=== PATIENT | female | born 1945 | race Caucasian/White ===

== ENCOUNTER 2017-06-15 00:31 | Inpatient (IN) | payer MEDICARE, OTHER ==
[2017-06-15 01:35] LABS: #Eosinphils 0.3 thou/uL (0.0-0.7); #Lymphocytes 1.9 thou/uL (1.20-3.40); #Monocytes 1.3 thou/uL (0.11-0.59); %Basophils 0.2 % (0.0-1.0); %Eosinophils 2.4 % (0.0-10.0); %Lymphocytes 16.2 % (21.0-51.0); %Monocytes 11.2 % (0.0-10.0); Mean Corpuscular HGB CONC 33.1 g/dL (32.0-36.0); Mean Corpuscular Hemoglobin 31.5 pg (27.0-31.0); Mean Corpuscular Volume 95.3 fl (81.0-99.0); Mean Platelet Volume 6.5 fL (7.4-10.4); Platelet Count 143 thou/uL (130-400); Red Blood Cell (RBC) Count 4.45 mill/uL (4.20-5.40); White Blood Cell (WBC) Count 11.4 thou/uL (4.8-10.8)
[2017-06-15 01:41] LABS: INR-International Normal Ratio 1.1; Prothrombin Time 14.1 SEC (12.0-14.7)
[2017-06-15 01:42] LABS: PTT 32.1 SEC (22.9-36.1)
[2017-06-15 01:56] LABS: ALT (SGPT) 11 U/L (8-55); AST (SGOT) 22 U/L (5-34); Albumin 3.7 g/dL (3.4-4.8); Alkaline Phosphatase 109 U/L (40-150); Anion Gap 14 mmol/L (10-20); BUN (Urea Nitrogen) 14 mg/dL (9.8-20.1); Bilirubin, Total 0.6 mg/dL (0.2-1.2); Calc. Creatinine Clearance 0 mL/min (70-130); Calcium 9.2 mg/dL (7.8-10.44); Carbon Dioxide 31 mmol/L (23-31); Chloride 93 mmol/L (98-107); Estimated GFR-MDRD 63; Globulin 3.2 g/dL (2.4-3.5); Glucose 114 mg/dL (80-115); Potassium 4.1 mmol/L (3.5-5.1); Protein, Total 6.9 g/dL (6.0-8.3); Sodium 134 mmol/L (136-145)
[2017-06-15] MEDS ORDERED: Sodium Chloride 0.9% 1,000 ML IV SCH ×2 (04:09→13:45)
[2017-06-15] MEDS ORDERED: Ondansetron ODT 4 MG TAB SL PRN (04:09)
[2017-06-15] MEDS ORDERED: Ondansetron HCl/PF 4 MG/2 ML Vial IVP PRN ×4 (04:09→14:10)
[2017-06-15] MEDS ORDERED: Acetaminophen 325 MG TAB PO PRN (04:09)
[2017-06-15 04:21] VITALS: BMI 40.4
[2017-06-15] MEDS ORDERED: Fleet Enema 133 ML BOT PR PRN ×2 (04:38→13:42)
[2017-06-15] MEDS ORDERED: Bisacodyl 10 MG SUPP PR PRN ×2 (04:38→13:42)
[2017-06-15] MEDS ORDERED: Morphine 4 MG/ML VIAL SLOW IVP PRN ×2 (04:38)
[2017-06-15] MEDS ORDERED: Ondansetron ODT 4 MG TAB PO PRN ×2 (04:38→13:42)
[2017-06-15] MEDS ORDERED: Milk Of Magnesia 30 ML UDCUP PO PRN ×2 (04:38→13:42)
[2017-06-15] MEDS: D5 0.9% NS w/ 20 mEq KCl 1,000 ML IV SCH ×2 (06:34→19:38)
[2017-06-15] MEDS: Ketorolac Tromethamine 30 MG/ML VIAL IVP SCH ×4 (06:35→23:08)
[2017-06-15] MEDS ORDERED: Tranexamic Acid 1,000 MG in Sodium Chloride 0.9% 250 ML 250 ML IVPB SCH (07:00)
[2017-06-15] MEDS ORDERED: CEFAZOLIN/Water 2 GM/20 ML SYRINGE SLOW IVP SCH (07:00)
--- NOTE | 2017-06-15 07:18 | HP ---
Artie Lemus PA-C, dictating for Massimo Tracy M.D. DATE OF ADMISSION: 06/15/2017 CONSULTING PHYSICIAN: Piotr Cordero M.D. CHIEF COMPLAINT: Evaluation status post fall. HISTORY OF PRESENT ILLNESS: A 71-year-old female who presents to the ED status post fall tonight. Hans capellan reported she was attempting to get into her recliner and she just somehow tripped and fell clem ding on her left hip and now complaining of left hip pain. She denies any other pain other than her chronic basis of back pain. Denied any lightheadedness, chest pain, headache, shortness of breath pr ior to the fall. PAST MEDICAL HISTORY: Includes liver cirrhosis, chronic back pain, history of low blood pressure. PAST SURGICAL HISTORY: Includes cholecystectomy, tubal ligation, and orthopedic surgeries of all hip and elbow. PSYCHIATRIC HISTORY: Includes depression. SOCIAL HISTORY: She denies any alcohol, drug, or tobacco use. She lives at home alone. She does [place] ve a history of alcoholism. ALLERGIES: SULFA. CURRENT MEDICATIONS: Aspirin 81 mg p.o. daily, bupropion 150 mg p.o. daily, carvedilol 3.125 mg p.o. b.i.d., ferrous sulfate 325 p.o. daily, folic acid p.o. daily 1 mg, furosemide 40 mg p.o. b.i.d., ga bapentin 300 mg t.i.d., loratadine 10 mg p.o. daily, pantoprazole DR 40 mg p.o. daily, risperidone 0. 5 mg p.o. b.i.d., spironolactone 100 mg p.o. daily, B12 1000 mcg p.o. daily. REVIEW OF SYSTEMS: All 10 systems were reviewed, otherwise stated in the HPI. PHYSICAL EXAMINATION: VITAL SIGNS: Blood pressure 132/74, heart rate 73, respiratory rate 20, temperature 97.9, 10/10 pain , 95% on O2. HEENT: Atraumatic, normocephalic. Eyes: Equal, round, react to light, 3 mm bilaterally. No JVD, n o masses. Trachea is midline. RESPIRATORY: Clear bilaterally to auscultation. CARDIOVASCULAR: S1, S2, regular rate and rhythm. ABDOMEN: Soft, nontender, nondistended, large left ventral hernia. BACK: Unremarkable. EXTREMITIES: Unremarkable. Lower extremities small amount of tenderness in the left lateral hip, un able to move or test range of motion secondary to pain. Normal sensation. Capillary refill. Positi ve pulses bilaterally. NEUROLOGIC: GCS of 15. LABORATORY DATA: WBC 11.4, hemoglobin 14, hematocrit 42.4, platelet count 143. Coags 14.1, INR 1.1, PTT 32.1. Sodium 134, potassium 4.1, chloride 93, bicarbonate 31, BUN 14, creatinine 0.9, glucose 1 14. RADIOLOGIC REPORTS: Pelvic x-ray showed impacted and displaced left IT fracture on pelvis and hip x- ray, chest showed no acute disease. ASSESSMENT AND PLAN: 1. Status post fall. 2. Left impacted and displaced intertrochanteric fracture. Plan will be to obtain orthopedic consultation. Dr. Cordero has been already contacted and follow up recommendations by him. Optimize her pain with IV analgesics, keep remain n.p.o., continue IV fluids , initiate gastritis and DVT prophylaxis when appropriate. Patient has been discussed with Dr. Tracy and agrees with the above plan.
[2017-06-15] MEDS ORDERED: Tranexamic Acid 1,000 MG/100 ML BAG ONE (11:31)
[2017-06-15] MEDS ORDERED: CEFAZOLIN/Water 2 GM/20 ML SYRINGE ONE (11:31)
--- NOTE | 2017-06-15 11:57 | RAD ---
RADIOGRAPH LEFT HIP 2 VIEWS: DATE: 06/15/17. TIME: 1:05 a.m. HISTORY: A 71-year-old female status post acute traumatic injury to the left hip. FINDINGS: There is a comminuted intertrochanteric fracture with subtrochanteric component. There is mildly inc reased varus angulation, and mild anterior displacement of the main distal fragment. Lesser trochant camila fracture fragments are displaced. There is severe joint space narrowing, with sclerosis and mod erate subcapital osteophytosis, at the inferior aspect of the hip. Femoral head is mildly irregular, and is associated with sclerosis and multiple small subchondral cysts throughout. There is also irre gularity of the left pubis, and especially of the left inferior ramus. IMPRESSION: 1. Acute, traumatic, comminuted, displaced, closed, left intertrochanteric fracture. 2. Fractures of the left inferior ramus and left pubis, of indeterminate age. 3. Severe osteoarthrosis of the left hip. 4. Osteopenia. POS: [facility]
--- NOTE | 2017-06-15 12:01 | RAD ---
RADIOGRAPH PELVIS 1 VIEW: DATE: 06/15/17. TIME: 1:00 a.m. HISTORY: A 71-year-old female with acute traumatic pelvic pain from fall. FINDINGS: Right hip replacement arthroplasty hardware. Severe DJD of left hip, especially inferiorly. Acute l eft intertrochanteric fracture with increased varus angulation, and displacement of lesser trochanter ic fracture fragment. Old, healed right inferior and right superior ramus fracture deformities, as n oted on previous right hip radiograph of 01/20/17. Similar-appearing displaced fracture deformities of left inferior ramus and left pubis. There are no prior studies of the left hip for comparison, and it is uncertain whether these are acute or chronic . There is diffuse osteopenia. Pelvic ring appears to be grossly intact, but mildly displaced pelvi c fractures could be missed because of the severe osteopenia. IMPRESSION: 1. Acute, traumatic, displaced, comminuted left intertrochanteric fracture. 2. Old healed fractures of right superior and inferior rami. 3. Displaced fractures of left inferior ramus and left pubis, of indeterminate age, presumably old. 4. Status post total right hip replacement arthroplasty. 5. Osteopenia. POS: [facility]
--- NOTE | 2017-06-15 12:02 | RAD ---
RADIOGRAPH CHEST 1 VIEW: HISTORY: A 71-year-old female for preoperative evaluation, status post acute left intertrochanteric fracture. FINDINGS: The image is overexposed. There is no evidence of consolidation. The lateral costophrenic angles ar e sharp. IMPRESSION: 1) Limited study. 2) No acute findings. patricio [] POS: [facility]
[2017-06-15] MEDS ORDERED: PHENYLEPHRINE-NS 100 MCG/ML 10 ML SYRINGE ONE (12:10)
[2017-06-15] MEDS ORDERED: Dexamethasone 20 MG/5 ML VIAL ONE (12:10)
[2017-06-15] MEDS ORDERED: Ondansetron HCl/PF 4 MG/2 ML Vial ONE (12:10)
[2017-06-15] MEDS ORDERED: Glycopyrrolate 0.2 MG/ML 5 ML SYRINGE ONE (12:10)
[2017-06-15] MEDS ORDERED: Fentanyl 100 MCG/2 ML VIAL ONE (12:17)
[2017-06-15] MEDS ORDERED: Bacitracin Zinc Ointment 30 gm TUBE ONE (13:12)
[2017-06-15] MEDS ORDERED: Fentanyl 100 MCG/2 ML VIAL SLOW IVP PRN (13:42)
[2017-06-15] MEDS ORDERED: traMADol HCl 50 MG TAB PO PRN ×2 (13:42)
[2017-06-15] MEDS ORDERED: Cepastat Lozenges 1 LOZ PO PRN (13:42)
[2017-06-15] MEDS ORDERED: Tranexamic Acid 1,000 MG in Sodium Chloride 0.9% 100 ML IVPB SCH (13:45)
[2017-06-15] MEDS ORDERED: CEFAZOLIN 1 GM in Sodium Chloride 0.9% 100 ML IVPB SCH (14:00)
[2017-06-15] MEDS ORDERED: Promethazine HCl 25 MG/ML VIAL IM PRN (14:10)
[2017-06-15] MEDS ORDERED: Promethazine HCl 25 MG/ML VIAL SLOW IVP PRN (14:10)
[2017-06-15] MEDS ORDERED: HYDROmorphone 2 MG/ML VIAL SLOW IVP PRN (14:10)
--- NOTE | 2017-06-15 14:14 | OP ---
DATE OF PROCEDURE: 06/15/2017 PREOPERATIVE DIAGNOSIS: Left hip three-part intertrochanteric reversed oblique hip fracture with sub trochanteric component. POSTOPERATIVE DIAGNOSIS: Left hip three-part intertrochanteric reversed oblique hip fracture with patel btrochanteric component. OPERATIVE PROCEDURE: Closed reduction with intramedullary nail fixation utilizing a Synthes short TF N. SURGEON: Piotr Cordero M.D. SCIENTIST ELECTRONICS: Farhan Bauer PA-C ANESTHESIA: General via endotracheal tube. COMPONENTS USED: Synthes short TFN 11 mm nail system with a 110 mm lag screw and a 5 mm, 38 mm lengt h interlocking screw. ESTIMATED BLOOD LOSS: 350 mL DRAINS: None. SPECIMENS: None. COMPLICATIONS: None. COUNTS: Correct. INDICATIONS FOR SURGERY: Josette is a 71-year-old white female that fell from a standing height yester day evening resulting in a hip fracture. She was admitted to Trauma Service. Now, we were consulted for definitive orthopedic management of this problem. PROCEDURE IN DETAIL: After informed consent was obtained in the preoperative holding area, the patie nt received preoperative antibiotics, was taken to the operative suite and positioned appropriately o n the fracture table, and after adequate anesthesia was obtained, the patient was positioned appropri ately. The left hip was then visualized using fluoroscopy. In line longitudinal traction and reduct ion maneuvers were performed until near anatomic reduction was obtained. The left hip and lower extr emity were then prepped and draped in usual sterile fashion. Prior to incision, a time out was manuel d and all members of the surgical team agreed upon site, surgeon, and patient. Once this was complet ed, a longitudinal incision was made 2 fingerbreadths above the tip of the trochanter noted by palpat ion. The IT band was then incised sharply. The tip of the trochanter was palpated and using the pos terior 1/3 of the trochanter, the guidepin was then placed down the length of the canal. This was co nfirmed in 2 planes with fluoroscopy. The 15 mm opening reamer was then used to open the tip of the trochanter and the nail was then slid down and malleted firmly into place. The outrigger was then us ed to place the lag screw guide pin. We chose posterior inferior screw placement and this was over r eamed with the lateral cortex reamer and intramedullary reaming was carried up to the appropriate luis gth. The pin was then used to guide the lag screw in place and we used minimal reduction in compress ion to accomplish this. Once completed, the guidepin was then removed and the outrigger was used to place the distal interlocking screw. We chose a 2-incision technique to perform this. The locking g ate was closed on the lag screw. The outrigger was removed and final fluoroscopic films were obtaine d in both AP, lateral, and a 20 degree trauma oblique. Happy with that anatomic reduction, both inci sions were copiously irrigated with normal saline and primary closure was accomplished with a 0 in th e IT band and 2-0 in subcutaneous layer and stainless steel rachel were used to reapproximate the sk in. Sterile dressings were applied to both incisions. Procedure was terminated without any complica tions. The patient was removed from the fracture table, taken to the recovery room in stable conditi on.
--- NOTE | 2017-06-15 15:59 | RAD ---
LEFT HIP 2 VIEWS: HISTORY: Left hip fracture. FINDINGS: Two spot fluoroscopic intraoperative images of the left hip demonstrate interval reduction and architecture internship al fixation of the intertrochanteric fracture seen on earlier exam of 1:03 a.m. from the same date. POS: [facility]
[2017-06-15] MEDS ORDERED: Eucerin (Mineral Oil/Petrolatum,White) 30 gm Jar TOP PRN (19:50)
[2017-06-15] MEDS: CEFAZOLIN 1 GM, Syringe 2.5 ML in Sterile Water 7.5 ML SLOW IVP SCH (20:24)
[2017-06-15] MEDS: Aspirin 325 MG TAB PO SCH (20:25)
[2017-06-15] MEDS: Gabapentin 300 MG CAP PO SCH (20:25)
[2017-06-15] MEDS: Ferrous Gluconate 324 MG TAB PO SCH (20:25)
[2017-06-15] MEDS: risperiDONE 0.25 MG TAB PO SCH (20:26)
[2017-06-15] MEDS: Carvedilol 3.125 MG TAB PO SCH (20:26)
[2017-06-15] MEDS: Furosemide 40 MG TAB PO SCH (20:26)
[2017-06-15] MEDS: Senokot S 8.6-50 MG TAB PO SCH (20:27)
[2017-06-15] MEDS: Spironolactone 100 MG TAB PO SCH (20:27)
[2017-06-15] MEDS ORDERED: Gabapentin 300 MG CAP PO SCH (21:00)
[2017-06-15] MEDS ORDERED: Non-Formulary Item 1 EACH (Risperidone [Risperdal] 0.5 MG) PO SCH (21:00)
--- NOTE | 2017-06-15 23:02 | PRG ---
DATE OF SERVICE: 06/15/2017 SUBJECTIVE: No acute changes at this time. Pain is controlled at this time with current medication regime. OBJECTIVE: VITAL SIGNS: Heart rate 96, respiratory rate 18, blood pressure 125/72. PHYSICAL EXAMINATION: GENERAL: No acute distress. LUNGS: Clear lung sounds bilaterally. CARDIOVASCULAR: S1, S2, regular rate and rhythm. ABDOMEN: Soft, nontender, nondistended. EXTREMITIES: Noted left hip . Positive pulses in all 4 extremities. NEUROLOGIC: GCS 15. ASSESSMENT AND PLAN: This is a nice 71-year-old female, postop day 0 from a closed reduction with in tramedullary nail fixation utilizing a nail. We will optimize her pain. We will start PT and OT the rapy sessions, most likely have a rehab screen in this patient for post-hospital care. We will resta rt her home meds. The patient was placed on deep venous thrombosis prophylaxis when appropriate. At this time, patient was discussed with Dr. Tracy, who agrees with the above plan.
[2017-06-16] MEDS: CEFAZOLIN 1 GM, Syringe 2.5 ML in Sterile Water 7.5 ML SLOW IVP SCH (04:33)
[2017-06-16] MEDS: Ketorolac Tromethamine 30 MG/ML VIAL IVP SCH (05:19)
[2017-06-16 05:31] LABS: Hemoglobin 10.6 g/dL (12.0-16.0); Mean Corpuscular HGB CONC 33.2 g/dL (32.0-36.0); Mean Corpuscular Hemoglobin 31.7 pg (27.0-31.0); Mean Corpuscular Volume 95.5 fl (81.0-99.0); Mean Platelet Volume 6.8 fL (7.4-10.4); Platelet Count 104 thou/uL (130-400); RBC Distribution Width 12.8 % (11.5-14.5); Red Blood Cell (RBC) Count 3.36 mill/uL (4.20-5.40)
[2017-06-16 05:38] LABS: Anion Gap 12 mmol/L (10-20); BUN (Urea Nitrogen) 19 mg/dL (9.8-20.1); Calc. Creatinine Clearance 94 mL/min (70-130); Calcium 8.4 mg/dL (7.8-10.44); Carbon Dioxide 31 mmol/L (23-31); Chloride 96 mmol/L (98-107); Estimated GFR-MDRD 61; Glucose 157 mg/dL (80-115); Potassium 4.1 mmol/L (3.5-5.1); Sodium 135 mmol/L (136-145)
[2017-06-16] MEDS ORDERED: Ferrous Sulfate 325 MG TAB PO SCH (08:00)
[2017-06-16] MEDS ORDERED: traMADol HCl 50 MG TAB PO PRN ×2 (08:48)
[2017-06-16] MEDS ORDERED: Bupropion 150 MG XL TAB PO SCH (09:00)
[2017-06-16] MEDS: Aspirin 325 MG TAB PO SCH ×2 (10:12→21:25)
[2017-06-16] MEDS: Ferrous Gluconate 324 MG TAB PO SCH ×2 (10:12→21:26)
[2017-06-16] MEDS: Gabapentin 300 MG CAP PO SCH ×3 (10:12→21:26)
[2017-06-16] MEDS: Cyanocobalamin (Vitamin B-12) 1,000 MCG TAB PO SCH (10:13)
[2017-06-16] MEDS: Senokot S 8.6-50 MG TAB PO SCH ×2 (10:13→21:25)
[2017-06-16] MEDS: Loratadine 10 MG TAB PO SCH (10:13)
[2017-06-16] MEDS: Furosemide 40 MG TAB PO SCH ×2 (10:13→21:26)
[2017-06-16] MEDS: Folic Acid 1 MG TAB PO SCH (10:13)
[2017-06-16] MEDS: risperiDONE 0.25 MG TAB PO SCH ×2 (10:14→10:19)
[2017-06-16] MEDS: Multivitamin W/ Minerals 1 TAB PO SCH (10:14)
[2017-06-16] MEDS: Carvedilol 3.125 MG TAB PO SCH ×3 (10:14→18:36)
[2017-06-16] MEDS: Bupropion 150 MG SR TAB PO SCH (11:09)
[2017-06-16] MEDS: traMADol HCl 50 MG TAB PO SCH ×3 (11:21→22:32)
[2017-06-16] MEDS: Acetaminophen 500 MG TAB PO SCH ×3 (11:21→22:31)
[2017-06-16] MEDS: Spironolactone 100 MG TAB PO SCH ×2 (11:26→21:27)
[2017-06-16] MEDS: predniSONE 1 MG TAB PO SCH (11:26)
[2017-06-16] MEDS: Ibuprofen 600 MG TAB PO SCH ×2 (11:26→18:36)
--- NOTE | 2017-06-16 14:05 | PRG ---
DATE OF SERVICE: 06/16/2017 SUBJECTIVE: The patient is hospital day #2, postop day #1 status post ground-level fall in which she sustained a left hip fracture. The patient has undergone a closed reduction with intramedullary brooke l fixation by Orthopedic Service. The patient tolerated this procedure well. This morning, her pain is controlled and she is tolerating a diet. She will begin working with physical and occupational t herapy today. The patient will also undergo rehabilitation evaluation. PHYSICAL EXAMINATION: VITAL SIGNS: Temperature 97.5, heart rate 76, blood pressure 126/79, respirations 14, oxygen saturat ion 94% on room air. GENERAL: Patient is resting comfortably in bed. She is alert and oriented x3. Hutchinson coma scale i s 15. HEENT: Unremarkable. NECK: Nontender. Trachea is midline. No JVD. CHEST: Clear to auscultation bilaterally. HEART: Regular rate and rhythm. ABDOMEN: Soft, flat, nontender with active bowel sounds. EXTREMITIES: Neurovascularly intact x4. Postoperative dressing is clean, dry, and intact. LABORATORY FINDINGS AND IMAGING DATA: White blood cell count 11.0, hemoglobin 10.6, hematocrit 32.1, platelets 104. Sodium 135, potassium 4.1, chloride 96, CO2 31, BUN 19, creatinine 0.91, glucose 157 . There are no radiographs to review this morning. ASSESSMENT: 1. Status post ground-level fall. 2. Status post left hip fracture for which she has undergone surgical intervention. PLAN: Will be to continue physical and occupational therapy, pain control, and await placement decis ion. This evaluation was done with Dr. Price during rounds this morning.
[2017-06-16] MEDS: traMADol HCl 50 MG TAB PO PRN (15:46)
[2017-06-16] MEDS ORDERED: risperiDONE 0.25 MG TAB PO SCH (21:30)
--- NOTE | 2017-06-16 23:40 | PRG ---
DATE OF SERVICE: 06/16/2017 SUBJECTIVE: Josette Martin is a 71-year-old female postop day #1 status post hip fracture repair. The patient had no complaints this evening. She would like to discuss [facility] versus rehab with day shifting. OBJECTIVE: VITAL SIGNS: Stable. GENERAL: The patient is afebrile. Resting in bed in no acute distress. RESPIRATORY: Breathing is nonlabored. NEUROLOGIC: Moves all extremities x4. ASSESSMENT AND PLAN: As documented in daily progress note dated 06/16/2017. Continue care as kerry [place] We will continue to monitor.
[2017-06-17] MEDS: Ibuprofen 600 MG TAB PO SCH ×2 (00:45→09:08)
[2017-06-17] MEDS: traMADol HCl 50 MG TAB PO SCH ×2 (04:50→12:57)
[2017-06-17] MEDS: Acetaminophen 500 MG TAB PO SCH ×2 (04:50→09:08)
[2017-06-17 06:09] LABS: Hemoglobin 10.2 g/dL (12.0-16.0); Mean Corpuscular HGB CONC 33.7 g/dL (32.0-36.0); Mean Corpuscular Hemoglobin 32.2 pg (27.0-31.0); Mean Corpuscular Volume 95.5 fl (81.0-99.0); Mean Platelet Volume 7.1 fL (7.4-10.4); Platelet Count 111 thou/uL (130-400); Red Blood Cell (RBC) Count 3.16 mill/uL (4.20-5.40); White Blood Cell (WBC) Count 10.2 thou/uL (4.8-10.8)
[2017-06-17 06:15] LABS: Anion Gap 13 mmol/L (10-20); BUN (Urea Nitrogen) 36 mg/dL (9.8-20.1); Calc. Creatinine Clearance 85 mL/min (70-130); Calcium 8.9 mg/dL (7.8-10.44); Carbon Dioxide 31 mmol/L (23-31); Chloride 94 mmol/L (98-107); Estimated GFR-MDRD 54; Glucose 106 mg/dL (80-115); Potassium 4.3 mmol/L (3.5-5.1); Sodium 134 mmol/L (136-145)
[2017-06-17] MEDS: Gabapentin 300 MG CAP PO SCH (09:07)
[2017-06-17] MEDS: traMADol HCl 50 MG TAB PO PRN (09:08)
[2017-06-17] MEDS: Spironolactone 100 MG TAB PO SCH (09:30)
[2017-06-17] MEDS: predniSONE 1 MG TAB PO SCH (09:30)
[2017-06-17] MEDS: Bupropion 150 MG SR TAB PO SCH (10:21)
[2017-06-17] MEDS: Carvedilol 3.125 MG TAB PO SCH (10:22)
[2017-06-17] MEDS: Ferrous Gluconate 324 MG TAB PO SCH (10:22)
[2017-06-17] MEDS: risperiDONE 0.25 MG TAB PO SCH (10:22)
[2017-06-17] MEDS: Aspirin 325 MG TAB PO SCH (10:22)
[2017-06-17] MEDS: Multivitamin W/ Minerals 1 TAB PO SCH (10:22)
[2017-06-17] MEDS: Senokot S 8.6-50 MG TAB PO SCH (10:22)
[2017-06-17] MEDS: Folic Acid 1 MG TAB PO SCH (10:23)
[2017-06-17] MEDS: Loratadine 10 MG TAB PO SCH (10:23)
[2017-06-17] MEDS: Furosemide 40 MG TAB PO SCH (10:23)
[2017-06-17] MEDS: Cyanocobalamin (Vitamin B-12) 1,000 MCG TAB PO SCH (10:23)
[2017-06-17 13:10] VITALS: BP 101/68; TEMP 97.8
[2017-06-17] MEDS ORDERED: Ascorbic Acid 500 mg Chewable Tablet PO SCH (17:00)
--- NOTE | 2017-06-18 12:46 | DIS ---
DATE OF ADMISSION: 06/15/2017 DATE OF DISCHARGE: 06/17/2017 ADMISSION DIAGNOSES: 1. Status post fall. 2. Left impacted and displaced intertrochanteric fracture. CONSULTATIONS: Orthopedics. PROCEDURES: Closed reduction with intramedullary nail fixation utilizing a short Synthes TFN. HOSPITAL SUMMARY: Patient is a 71-year-old woman who was attempting to sit on a recliner when she so mehow tripped and fell, landed on her left hip. She was brought to the emergency department, evalu ed, examined and noted to have the above injuries. The patient was stable enough to go to the operat ing room that evening and was able to tolerate this procedure well. At time of discharge, she was wo rking with physical and occupational therapy. She was tolerating a diet and pain was controlled. patient was discharged to [facility] per her and family request. The patient will follow up with Dr. Cordero in 2-3 weeks or sooner as needed.
--- NOTE | 2017-06-20 16:10 | EKG ---
Test Reason : Blood Pressure : / mmHG Vent. Rate : 075 BPM Atrial Rate : 075 BPM P-R Int : 176 ms QRS Dur : 080 ms QT Int : 424 ms P-R-T Axes : 028 -05 060 degrees QTc Int : 473 ms Normal sinus rhythm Nonspecific T wave abnormality Prolonged QT Abnormal ECG Confirmed by PATRICIA OATES D.O. ([id number]), scientific editor MEENA VEGA ([id number] on 06/20/2017 4:10:37 PM Referred By: MD OATES Confirmed By:PATRICIA OATES D.O.
== END 2017-06-17 14:17 | DRG 482 ==
LOC: ERS 00:31 → SJJU 03:40
PROVIDERS: ADMIT Surgery; ATTEND Surgery
PROC: 0QS736Z Reposition Left Upper Femur with Intramedullary Internal Fixation Device, Percutaneous Approach (ICD-10-PCS; principal; 2017-06-15)
DX: S72.142A Displaced intertrochanteric fracture of left femur, initial encounter for closed fracture (principal); K74.60 Unspecified cirrhosis of liver; F10.20 Alcohol dependence, uncomplicated; F32.9 Major depressive disorder, single episode, unspecified; S72.22XA Displaced subtrochanteric fracture of left femur, initial encounter for closed fracture; W01.0XXA Fall on same level from slipping, tripping and stumbling without subsequent striking against object, initial encounter
CPT/HCPCS: 36415; 51702; 71045; 72170; 76001; 80048; 80053; 83605; 85025; 85027; 85610; 85730; 93005; 96361; 96374; 96376; A4216; C1713; C1769; G0390; G8978-GP-CM; G8979-GP-CK; G8987-GO-CM; G8988-GO-CJ; J0690; J1100; J1885; J2405; J3010; J7050

== ENCOUNTER 2017-08-17 08:30 | Outpatient (CLI) | payer MEDICARE | END 2017-08-17 08:31 | disposition home or self-care (01) | LOC: ULT 08:30 | PROVIDERS: ATTEND Family Medicine | DX: K70.31 Alcoholic cirrhosis of liver with ascites (principal); Z90.49 Acquired absence of other specified parts of digestive tract | CPT/HCPCS: 76700 ==

== ENCOUNTER 2022-10-11 14:04 | Emergency (ER) | payer MEDICARE ==
[2022-10-11] MEDS ORDERED: Dexamethasone 4 mg/ml Vial ONE (15:46)
== END 2022-10-11 16:17 | disposition home or self-care (01) ==
LOC: ERS 14:04
DX: M19.042 Primary osteoarthritis, left hand (principal); T78.40XA Allergy, unspecified, initial encounter; Z79.82 Long term (current) use of aspirin
CPT/HCPCS: J1100

== ENCOUNTER 2022-11-18 15:10 | Inpatient (IN) | payer MEDICARE ==
[~2022-11-18 15:10] MED LIST: Iopamidol-370 76% 500 ML MDV (1 ML CHARGE) ONE
[2022-11-18 16:32] LABS: #Eosinphils 0.1 thou/uL (0.0-0.7); #Monocytes 1.2 thou/uL (0.11-0.59); %Basophils 0.2 % (0.0-1.0); %Eosinophils 0.8 % (0.0-10.0); %Lymphocytes 14.8 % (21.0-51.0); %Monocytes 10.8 % (0.0-10.0); %Neutrophils 72.3 % (42.0-75.0); Hemoglobin 11.5 g/dL (12.0-16.0); Mean Corpuscular HGB CONC 31.5 g/dL (32.0-36.0); Mean Corpuscular Hemoglobin 26.9 pg (27.0-31.0); Mean Corpuscular Volume 85.5 fl (78.0-98.0); Mean Platelet Volume 8.8 fL (7.4-10.4); Platelet Count 162 10x3/uL (130-400); RBC Distribution Width 17.7 % (11.5-14.5); Red Blood Cell (RBC) Count 4.27 mill/uL (4.20-5.40); White Blood Cell (WBC) Count 11.1 10x3/uL (4.8-10.8)
[2022-11-18 16:46] LABS: INR-International Normal Ratio 1.3; PTT 34.7 sec (22.9-36.1); Prothrombin Time 16.3 sec (12.0-14.7)
[2022-11-18 16:55] LABS: ALT (SGPT) 10 U/L (8-55); AST (SGOT) 20 U/L (5-34); Alkaline Phosphatase 54 U/L (40-110); Anion Gap 16 mmol/L (10-20); BUN (Urea Nitrogen) 11 mg/dL (9.8-20.1); Bilirubin, Total 0.7 mg/dL (0.2-1.2); CK (CPK) 88 U/L (29-168); Calc. Creatinine Clearance 0 mL/min (70-130); Calcium 8.7 mg/dL (7.8-10.44); Carbon Dioxide 27 mmol/L (23-31); Chloride 96 mmol/L (98-107); Estimated GFR 84; Globulin 3.7 g/dL (2.4-3.5); Glucose 104 mg/dL (83-110); Lipase 8 U/L (8-78); Potassium 2.8 mmol/L (3.5-5.1); Protein, Total 6.7 g/dL (5.8-8.1); Sodium 136 mmol/L (136-145)
[2022-11-18 17:46] LABS: Bacteria/HPF 4+ HPF (None Seen); Bilirubin Negative (Negative); Blood, Urine Negative (Negative); CAUTI Indications for Culture Alt mental st,lethar; Clarity Turbid (Clear); Glucose, Urine (Dipstick) Normal (Negative); Ketone, Urine Trace mg/dL (Negative); Leukocyte 500 Leu/uL (Negative); Nitrite Negative (Negative); Protein, Urine (Dipstick) 20 mg/dL (Neg-Trace); RBC/HPF 0-3 HPF (0-3); Specific Gravity, Urine 1.023 (1.002-1.036); Squamous Epithelial 0-3 HPF (0-3); WBC/HPF 21-50 HPF (0-3); pH, Urine 5.5 (5.0-9.0)
[2022-11-18 17:48] LABS: Urine Culture Reflex Yes Yes
[2022-11-18] MEDS ORDERED: Aspirin 325 MG TAB ONE (18:34)
[2022-11-18] MEDS ORDERED: cefTRIAXone (ROCEPHIN) 2 GM VIAL ONE (18:34)
[2022-11-18] MEDS ORDERED: Potassium Chloride 20 MEQ/100 ML PREMIX BAG ONE (18:58)
[2022-11-18] MEDS ORDERED: Piperacillin/Tazobactam 3.375 GM VIAL ONE (19:24)
[2022-11-18] MEDS ORDERED: Digoxin 0.5 MG/2 ML AMP ONE (19:44)
[2022-11-18] MEDS ORDERED: Senokot S 8.6-50 MG TAB PO PRN (20:41)
[2022-11-18] MEDS ORDERED: Acetaminophen 325 MG TAB PO PRN (20:41)
[2022-11-18] MEDS ORDERED: Ondansetron ODT 4 MG TAB PO PRN (20:41)
[2022-11-18 20:51] LABS: SARS-CoV-2 NAA Rapid Test Not Detected (NotDetected)
[2022-11-18] MEDS ORDERED: Thiamine 100 MG TAB PO SCH (21:00)
[2022-11-18] MEDS ORDERED: Famotidine 20 MG TAB PO SCH (21:00)
[2022-11-18] MEDS ORDERED: Albumin 25% 100 ML ONE (21:35)
[2022-11-18] MEDS ORDERED: Electrolyte Replacement Protocol 1 EACH FS SCH (21:40)
[2022-11-18] MEDS ORDERED: Albumin 25% 25 GM/100 ML BOT IVPB SCH (21:45)
[2022-11-18] MEDS ORDERED: Sodium Chloride 0.9% 500 ML IV SCH (21:45)
[2022-11-18 21:49] LABS: Alcohol Less than 10.0 mg/dL (Less than 10); Magnesium 1.6 mg/dL (1.6-2.6)
[2022-11-18] MEDS ORDERED: Dextrose 5% in Water 1,000 ML IV PRN (21:57)
[2022-11-18] MEDS ORDERED: Dextrose 50% Abboject 50 ML SYRINGE SLOW IVP PRN (21:57)
[2022-11-18] MEDS ORDERED: Glucagon 1 MG/ML KIT IM PRN (21:57)
[2022-11-18] MEDS ORDERED: Lactated Ringer's 1,000 ML IV SCH (22:00)
[2022-11-18 22:23] LABS: Amphetamine Not Detected (NotDetected); Barbiturates Screen Not Detected (NotDetected); Benzodiazepine Screen Not Detected (NotDetected); Cocaine Metabolite Screen Not Detected (NotDetected); Methadone Not Detected (NotDetected); Methamphetamine Not Detected (NotDetected); Opiate Screen Detected (NotDetected); Oxycodone Screen Not Detected (NotDetected); Phencyclidine (PCP) Not Detected (NotDetected); THC/Cannabinoid Screen Not Detected (NotDetected); Tricyclic Screen Not Detected (NotDetected)
[2022-11-18] MEDS: Potassium Chloride 20 MEQ in Premix Bag 1 BAG IVPB SCH (22:23)
[2022-11-18] MEDS: Thiamine HCl 200 MG/2 ML VIAL SLOW IVP SCH (22:26)
[2022-11-18] MEDS ORDERED: Piperacillin/Tazobactam 3.375 GM in Sodium Chloride 0.9% 100 ML IVPB SCH (22:45)
[2022-11-18] MEDS ORDERED: Lactated Ringer's 500 ML IV SCH (23:30)
[2022-11-19] MEDS: Potassium Chloride 20 MEQ in Premix Bag 1 BAG IVPB SCH (00:49)
[2022-11-19] MEDS ORDERED: Magnesium 2 GM/50 ML(in water) 2 GM in Premix Bag 1 BAG IVPB SCH (01:00)
[2022-11-19 04:00] LABS: #Eosinphils 0.2 thou/uL (0.0-0.7); #Monocytes 0.7 thou/uL (0.11-0.59); #Neutrophils 4.2 thou/uL (1.40-6.50); %Basophils 0.3 % (0.0-1.0); %Eosinophils 2.3 % (0.0-10.0); %Lymphocytes 27.2 % (21.0-51.0); %Monocytes 10.3 % (0.0-10.0); %Neutrophils 59.2 % (42.0-75.0); Hemoglobin 9.5 g/dL (12.0-16.0); Mean Corpuscular HGB CONC 31.4 g/dL (32.0-36.0); Mean Corpuscular Hemoglobin 26.6 pg (27.0-31.0); Mean Corpuscular Volume 84.9 fl (78.0-98.0); Mean Platelet Volume 8.9 fL (7.4-10.4); Platelet Count 126 10x3/uL (130-400); RBC Distribution Width 17.6 % (11.5-14.5); Red Blood Cell (RBC) Count 3.57 mill/uL (4.20-5.40)
[2022-11-19 04:18] LABS: Anion Gap 16 mmol/L (10-20); BUN (Urea Nitrogen) 9 mg/dL (9.8-20.1); Calc. Creatinine Clearance 101 mL/min (70-130); Calcium 8.1 mg/dL (7.8-10.44); Carbon Dioxide 25 mmol/L (23-31); Chloride 103 mmol/L (98-107); Estimated GFR 94; Glucose 96 mg/dL (83-110); Magnesium 2.3 mg/dL (1.6-2.6); Potassium 3.9 mmol/L (3.5-5.1); Sodium 140 mmol/L (136-145)
[2022-11-19 04:35] LABS: Phosphorus 3.8 mg/dL (2.3-4.7)
[2022-11-19] MEDS: Piperacillin/Tazobactam 3.375 GM in Sodium Chloride 0.9% 100 ML IVPB SCH ×3 (06:14→20:06)
[2022-11-19] MEDS ORDERED: Spironolactone 25 MG TAB PO SCH (08:00)
[2022-11-19] MEDS ORDERED: Lactated Ringer's 1,000 ML IV SCH (08:30)
[2022-11-19] MEDS ORDERED: Thiamine 100 MG TAB PO SCH (09:00)
[2022-11-19] MEDS ORDERED: Furosemide 20 MG TAB PO SCH (09:00)
[2022-11-19] MEDS: Famotidine/PF 20 mg/2ml Vial SLOW IVP SCH ×2 (10:21→20:07)
[2022-11-19] MEDS: Montelukast Sodium 10 mg Tablet PO SCH (14:43)
[2022-11-19] MEDS: Folic Acid 1 MG TAB PO SCH (14:43)
[2022-11-19] MEDS: Aspirin 81 mg Enteric Coated Tablet PO SCH (14:43)
[2022-11-19] MEDS: Multivit, Therapeutic 1 TAB PO SCH (14:44)
[2022-11-19] MEDS: Sertraline 100 MG TAB PO SCH (14:44)
[2022-11-19] MEDS: Rosuvastatin 5 MG TAB PO SCH (14:44)
[2022-11-19] MEDS ORDERED: cefTRIAXone\\ROCEPHIN 1 GM in Sodium Chloride 0.9% 100 ML IVPB SCH (17:00)
[2022-11-19] MEDS ORDERED: Digoxin 0.5 MG/2 ML AMP SLOW IVP SCH (19:15)
[2022-11-19] MEDS ORDERED: Metoprolol Tartrate 5 MG/5 ML VIAL IVP PRN (19:43)
[2022-11-19] MEDS: Sodium Chloride 0.9% 1,000 ML IV SCH (20:03)
[2022-11-19] MEDS: Benztropine 1 MG TAB PO SCH (20:06)
[2022-11-19] MEDS: Gabapentin 300 MG CAP PO SCH (20:07)
[2022-11-19] MEDS: Vit A,C & E/Lutein/Minerals Tablet PO SCH (20:07)
[2022-11-20 03:42] LABS: #Eosinphils 0.2 thou/uL (0.0-0.7); #Monocytes 0.8 thou/uL (0.11-0.59); #Neutrophils 5.5 thou/uL (1.40-6.50); %Basophils 0.2 % (0.0-1.0); %Eosinophils 2.6 % (0.0-10.0); %Lymphocytes 20.7 % (21.0-51.0); %Monocytes 9.8 % (0.0-10.0); %Neutrophils 65.9 % (42.0-75.0); Hemoglobin 11.2 g/dL (12.0-16.0); Mean Corpuscular HGB CONC 30.9 g/dL (32.0-36.0); Mean Corpuscular Hemoglobin 26.3 pg (27.0-31.0); Platelet Count 156 10x3/uL (130-400); RBC Distribution Width 17.7 % (11.5-14.5); Red Blood Cell (RBC) Count 4.26 mill/uL (4.20-5.40); White Blood Cell (WBC) Count 8.4 10x3/uL (4.8-10.8)
[2022-11-20 04:01] LABS: Anion Gap 17 mmol/L (10-20); BUN (Urea Nitrogen) 8 mg/dL (9.8-20.1); Calc. Creatinine Clearance 94 mL/min (70-130); Calcium 8.8 mg/dL (7.8-10.44); Carbon Dioxide 26 mmol/L (23-31); Chloride 100 mmol/L (98-107); Estimated GFR 92; Glucose 82 mg/dL (83-110); Potassium 3.6 mmol/L (3.5-5.1); Sodium 139 mmol/L (136-145)
[2022-11-20] MEDS: Thiamine HCl 200 MG/2 ML VIAL SLOW IVP SCH ×2 (04:19→21:43)
[2022-11-20] MEDS: Piperacillin/Tazobactam 3.375 GM in Sodium Chloride 0.9% 100 ML IVPB SCH ×3 (04:19→21:37)
[2022-11-20] MEDS: HYDROcodone/Acetaminophen 5/325 mg Tablet PO PRN (06:44)
[2022-11-20] MEDS ORDERED: Flecainide 50 MG TAB PO SCH (07:00)
[2022-11-20] MEDS: Benztropine 1 MG TAB PO SCH ×2 (08:46→21:36)
[2022-11-20] MEDS: Famotidine/PF 20 mg/2ml Vial SLOW IVP SCH (08:47)
[2022-11-20] MEDS: Bupropion 150 MG XL TAB PO SCH (08:47)
[2022-11-20] MEDS: Vit A,C & E/Lutein/Minerals Tablet PO SCH ×2 (08:47→21:37)
[2022-11-20] MEDS: Sertraline 100 MG TAB PO SCH (08:47)
[2022-11-20] MEDS: Gabapentin 300 MG CAP PO SCH ×3 (08:47→21:36)
[2022-11-20] MEDS: Sodium Chloride 0.9% 1,000 ML IV SCH ×2 (08:47→21:43)
[2022-11-20] MEDS: Rosuvastatin 5 MG TAB PO SCH (08:47)
[2022-11-20] MEDS: Montelukast Sodium 10 mg Tablet PO SCH (08:47)
[2022-11-20] MEDS: Folic Acid 1 MG TAB PO SCH (08:47)
[2022-11-20] MEDS: Multivit, Therapeutic 1 TAB PO SCH (08:47)
[2022-11-20] MEDS: Aspirin 81 mg Enteric Coated Tablet PO SCH (08:47)
[2022-11-21 03:41] LABS: #Eosinphils 0.3 thou/uL (0.0-0.7); #Monocytes 0.7 thou/uL (0.11-0.59); #Neutrophils 4.4 thou/uL (1.40-6.50); %Basophils 0.3 % (0.0-1.0); %Eosinophils 4.4 % (0.0-10.0); %Lymphocytes 24.5 % (21.0-51.0); %Monocytes 9.5 % (0.0-10.0); %Neutrophils 60.3 % (42.0-75.0); Hemoglobin 10.2 g/dL (12.0-16.0); Mean Corpuscular HGB CONC 30.8 g/dL (32.0-36.0); Mean Corpuscular Hemoglobin 26.3 pg (27.0-31.0); Mean Corpuscular Volume 85.3 fl (78.0-98.0); Mean Platelet Volume 8.6 fL (7.4-10.4); Platelet Count 127 10x3/uL (130-400); RBC Distribution Width 17.4 % (11.5-14.5); Red Blood Cell (RBC) Count 3.88 mill/uL (4.20-5.40); White Blood Cell (WBC) Count 7.2 10x3/uL (4.8-10.8)
[2022-11-21 04:05] LABS: Anion Gap 14 mmol/L (10-20); BUN (Urea Nitrogen) 6 mg/dL (9.8-20.1); Calc. Creatinine Clearance 92 mL/min (70-130); Calcium 8.2 mg/dL (7.8-10.44); Carbon Dioxide 26 mmol/L (23-31); Chloride 104 mmol/L (98-107); Estimated GFR 92; Glucose 97 mg/dL (83-110); Potassium 3.5 mmol/L (3.5-5.1); Sodium 140 mmol/L (136-145)
[2022-11-21] MEDS: Piperacillin/Tazobactam 3.375 GM in Sodium Chloride 0.9% 100 ML IVPB SCH (04:21)
[2022-11-21] MEDS ORDERED: Potassium Chloride 20 MEQ TAB PO SCH ×2 (08:30→09:00)
[2022-11-21] MEDS ORDERED: Flecainide Acetate 100 MG TAB PO SCH (09:00)
[2022-11-21] MEDS: Sertraline 100 MG TAB PO SCH (09:53)
[2022-11-21] MEDS: Aspirin 81 mg Enteric Coated Tablet PO SCH (09:53)
[2022-11-21] MEDS: Bupropion 150 MG XL TAB PO SCH (09:53)
[2022-11-21] MEDS: Benztropine 1 MG TAB PO SCH ×2 (09:53→22:20)
[2022-11-21] MEDS: Vit A,C & E/Lutein/Minerals Tablet PO SCH ×2 (09:53→22:20)
[2022-11-21] MEDS: Gabapentin 300 MG CAP PO SCH ×3 (09:54→22:20)
[2022-11-21] MEDS: Folic Acid 1 MG TAB PO SCH (09:56)
[2022-11-21] MEDS: Montelukast Sodium 10 mg Tablet PO SCH (09:57)
[2022-11-21] MEDS: Multivit, Therapeutic 1 TAB PO SCH (09:57)
[2022-11-21] MEDS: Rosuvastatin 5 MG TAB PO SCH (09:57)
[2022-11-21] MEDS: HYDROcodone/Acetaminophen 5/325 mg Tablet PO PRN (11:14)
[2022-11-21] MEDS: cefTRIAXone\\ROCEPHIN 1 GM in Sodium Chloride 0.9% 100 ML IVPB SCH (12:30)
[2022-11-21] MEDS: Sodium Chloride 0.9% 1,000 ML IV SCH (12:30)
[2022-11-21] MEDS ORDERED: Rifaximin 550 MG TAB PO SCH (16:00)
[2022-11-21] MEDS: Flecainide 50 MG TAB PO SCH (22:20)
[2022-11-22] MEDS: Sodium Chloride 0.9% 1,000 ML IV SCH (04:57)
[2022-11-22] MEDS ORDERED: Dextrose 5 %-0.45 % NaCl 1,000 ML IV SCH (06:00)
[2022-11-22 07:26] LABS: #Eosinphils 0.3 thou/uL (0.0-0.7); #Monocytes 0.9 thou/uL (0.11-0.59); #Neutrophils 7.1 thou/uL (1.40-6.50); %Basophils 0.3 % (0.0-1.0); %Eosinophils 2.4 % (0.0-10.0); %Monocytes 8.3 % (0.0-10.0); %Neutrophils 69.4 % (42.0-75.0); Hemoglobin 10.4 g/dL (12.0-16.0); Mean Corpuscular HGB CONC 29.8 g/dL (32.0-36.0); Mean Corpuscular Hemoglobin 26.7 pg (27.0-31.0); Mean Corpuscular Volume 89.5 fl (78.0-98.0); Mean Platelet Volume 8.7 fL (7.4-10.4); Platelet Count 148 10x3/uL (130-400); RBC Distribution Width 17.4 % (11.5-14.5); White Blood Cell (WBC) Count 10.3 10x3/uL (4.8-10.8)
[2022-11-22 07:45] LABS: Anion Gap 10 mmol/L (10-20); BUN (Urea Nitrogen) 5 mg/dL (9.8-20.1); Calc. Creatinine Clearance 109 mL/min (70-130); Calcium 8.4 mg/dL (7.8-10.44); Carbon Dioxide 25 mmol/L (23-31); Chloride 103 mmol/L (98-107); Estimated GFR 94; Glucose 98 mg/dL (83-110); Potassium 4.2 mmol/L (3.5-5.1); Sodium 134 mmol/L (136-145)
[2022-11-22] MEDS: Aspirin 81 mg Enteric Coated Tablet PO SCH (10:23)
[2022-11-22] MEDS: Benztropine 1 MG TAB PO SCH ×2 (10:24→21:50)
[2022-11-22] MEDS: Bupropion 150 MG XL TAB PO SCH (10:28)
[2022-11-22] MEDS: Flecainide 50 MG TAB PO SCH ×2 (10:28→21:51)
[2022-11-22] MEDS: Folic Acid 1 MG TAB PO SCH (10:29)
[2022-11-22] MEDS: Gabapentin 300 MG CAP PO SCH ×3 (10:29→21:51)
[2022-11-22] MEDS: Sertraline 100 MG TAB PO SCH (10:34)
[2022-11-22] MEDS: Montelukast Sodium 10 mg Tablet PO SCH (10:34)
[2022-11-22] MEDS: Rosuvastatin 5 MG TAB PO SCH (10:34)
[2022-11-22] MEDS: Multivit, Therapeutic 1 TAB PO SCH (10:34)
[2022-11-22] MEDS: Rifaximin 550 MG TAB PO SCH ×2 (10:34→21:51)
[2022-11-22] MEDS: Vit A,C & E/Lutein/Minerals Tablet PO SCH ×2 (10:35→21:51)
[2022-11-22] MEDS ORDERED: Ipratropium/Albuterol 3 ML NEB NEB PRN (14:08)
[2022-11-22] MEDS: cefTRIAXone\\ROCEPHIN 1 GM in Sodium Chloride 0.9% 100 ML IVPB SCH (14:56)
[2022-11-22] MEDS ORDERED: Furosemide 40 MG/4 ML VIAL SLOW IVP SCH (15:00)
[2022-11-22] MEDS ORDERED: Iopamidol 370 76% 100 ML VIAL ONE (15:19)
[2022-11-22] MEDS ORDERED: Fentanyl 100 MCG/2 ML VIAL SLOW IVP PRN (19:50)
[2022-11-22] MEDS ORDERED: levETIRAcetam in NS 500 MG in Premix Bag 1 BAG IVPB SCH (21:00)
[2022-11-22] MEDS ORDERED: levETIRAcetam 500 MG TAB PO SCH (21:00)
[2022-11-22] MEDS: levETIRAcetam 500 MG/5 ML VIAL SLOW IVP SCH (21:50)
[2022-11-22] MEDS ORDERED: fentaNYL 50 mcg/mL 1 mL Vial SLOW IVP PRN (22:00)
[2022-11-23] MEDS ORDERED: Metoprolol Tartrate 5 MG/5 ML VIAL IVP SCH ×4 (02:30→22:45)
[2022-11-23 04:54] LABS: #Eosinphils 0.2 thou/uL (0.0-0.7); #Monocytes 1.2 thou/uL (0.11-0.59); #Neutrophils 7.2 thou/uL (1.40-6.50); %Basophils 0.3 % (0.0-1.0); %Eosinophils 1.5 % (0.0-10.0); %Monocytes 11.3 % (0.0-10.0); %Neutrophils 69.9 % (42.0-75.0); Hemoglobin 10.5 g/dL (12.0-16.0); Mean Corpuscular HGB CONC 31.7 g/dL (32.0-36.0); Mean Corpuscular Hemoglobin 27.1 pg (27.0-31.0); Platelet Count 141 10x3/uL (130-400); RBC Distribution Width 17.6 % (11.5-14.5); Red Blood Cell (RBC) Count 3.88 mill/uL (4.20-5.40); White Blood Cell (WBC) Count 10.3 10x3/uL (4.8-10.8)
[2022-11-23 05:06] LABS: Mean Corpuscular Volume 85.3 fl (78.0-98.0)
[2022-11-23 05:14] LABS: Phosphorus 4.2 mg/dL (2.3-4.7)
[2022-11-23 05:15] LABS: Anion Gap 13 mmol/L (10-20); BUN (Urea Nitrogen) 5 mg/dL (9.8-20.1); Calc. Creatinine Clearance 100 mL/min (70-130); Calcium 8.6 mg/dL (7.8-10.44); Carbon Dioxide 28 mmol/L (23-31); Chloride 98 mmol/L (98-107); Estimated GFR 93; Glucose 98 mg/dL (83-110); Magnesium 1.6 mg/dL (1.6-2.6); Potassium 3.6 mmol/L (3.5-5.1); Sodium 135 mmol/L (136-145)
[2022-11-23] MEDS ORDERED: Magnesium 2 GM/50 ML(in water) 2 GM in Premix Bag 1 BAG IVPB SCH (08:00)
[2022-11-23] MEDS: Multivit, Therapeutic 1 TAB PO SCH (10:11)
[2022-11-23] MEDS: Aspirin 81 mg Enteric Coated Tablet PO SCH (10:13)
[2022-11-23] MEDS: Sertraline 100 MG TAB PO SCH (10:14)
[2022-11-23] MEDS: Gabapentin 300 MG CAP PO SCH ×3 (10:14→22:54)
[2022-11-23] MEDS: Benztropine 1 MG TAB PO SCH ×2 (10:14→22:54)
[2022-11-23] MEDS: Rosuvastatin 5 MG TAB PO SCH (10:14)
[2022-11-23] MEDS: Montelukast Sodium 10 mg Tablet PO SCH (10:14)
[2022-11-23] MEDS: Flecainide 50 MG TAB PO SCH ×2 (10:14→22:54)
[2022-11-23] MEDS: Vit A,C & E/Lutein/Minerals Tablet PO SCH ×2 (10:16→22:59)
[2022-11-23] MEDS: Bupropion 150 MG XL TAB PO SCH (10:16)
[2022-11-23] MEDS: Folic Acid 1 MG TAB PO SCH (10:16)
[2022-11-23] MEDS: Rifaximin 550 MG TAB PO SCH ×2 (10:18→22:57)
[2022-11-23] MEDS: levETIRAcetam 500 MG/5 ML VIAL SLOW IVP SCH ×2 (10:18→22:56)
[2022-11-23] MEDS: cefTRIAXone\\ROCEPHIN 1 GM in Sodium Chloride 0.9% 100 ML IVPB SCH (11:49)
[2022-11-23] MEDS: HYDROcodone/Acetaminophen 5/325 mg Tablet PO PRN (11:52)
[2022-11-23] MEDS ORDERED: Sodium Chloride 0.9% 250 ML IV SCH (18:00)
[2022-11-23] MEDS: Sodium Chloride 0.9% 1,000 ML IV SCH (18:59)
[2022-11-23] MEDS ORDERED: Cefepime 1 GM in Sodium Chloride 0.9% 100 ML IVPB SCH (21:00)
[2022-11-23] MEDS: Cefepime 2 GM in Sodium Chloride 0.9% 100 ML IVPB SCH (21:07)
[2022-11-24 07:41] LABS: #Eosinphils 0.1 thou/uL (0.0-0.7); #Monocytes 1.9 thou/uL (0.11-0.59); #Neutrophils 8.2 thou/uL (1.40-6.50); %Basophils 0.2 % (0.0-1.0); %Eosinophils 0.4 % (0.0-10.0); %Lymphocytes 13.4 % (21.0-51.0); %Monocytes 15.7 % (0.0-10.0); %Neutrophils 69.4 % (42.0-75.0); Hemoglobin 10.5 g/dL (12.0-16.0); Mean Corpuscular HGB CONC 31.2 g/dL (32.0-36.0); Mean Corpuscular Hemoglobin 26.9 pg (27.0-31.0); Mean Corpuscular Volume 86.4 fl (78.0-98.0); Mean Platelet Volume 9.1 fL (7.4-10.4); Platelet Count 133 10x3/uL (130-400); RBC Distribution Width 17.7 % (11.5-14.5); White Blood Cell (WBC) Count 11.8 10x3/uL (4.8-10.8)
[2022-11-24 08:05] LABS: Anion Gap 11 mmol/L (10-20); BUN (Urea Nitrogen) 12 mg/dL (9.8-20.1); Calc. Creatinine Clearance 93 mL/min (70-130); Calcium 8.5 mg/dL (7.8-10.44); Carbon Dioxide 29 mmol/L (23-31); Chloride 100 mmol/L (98-107); Estimated GFR 92; Glucose 122 mg/dL (83-110); Potassium 3.4 mmol/L (3.5-5.1); Sodium 137 mmol/L (136-145)
[2022-11-24] MEDS ORDERED: Potassium Chloride 20 MEQ TAB PO SCH (10:00)
[2022-11-24] MEDS ORDERED: Magnesium 2 GM/50 ML(in water) 2 GM in Premix Bag 1 BAG IVPB SCH (10:00)
[2022-11-24] MEDS: Gabapentin 300 MG CAP PO SCH ×3 (11:34→21:38)
[2022-11-24] MEDS: Benztropine 1 MG TAB PO SCH ×2 (11:34→21:38)
[2022-11-24] MEDS: Rosuvastatin 5 MG TAB PO SCH (11:34)
[2022-11-24] MEDS: Rifaximin 550 MG TAB PO SCH ×2 (11:35→21:39)
[2022-11-24] MEDS: Folic Acid 1 MG TAB PO SCH (11:35)
[2022-11-24] MEDS: Aspirin Chewable 81 MG TAB PO SCH (11:35)
[2022-11-24] MEDS: Montelukast Sodium 10 mg Tablet PO SCH (11:35)
[2022-11-24] MEDS: Flecainide 50 MG TAB PO SCH ×2 (11:35→21:38)
[2022-11-24] MEDS: Vit A,C & E/Lutein/Minerals Tablet PO SCH ×2 (11:35→21:38)
[2022-11-24] MEDS: Multivit, Therapeutic 1 TAB PO SCH (11:35)
[2022-11-24] MEDS: levETIRAcetam 500 MG/5 ML VIAL SLOW IVP SCH ×2 (11:36→21:37)
[2022-11-24] MEDS: Cefepime 2 GM in Sodium Chloride 0.9% 100 ML IVPB SCH ×2 (11:36→21:37)
[2022-11-24] MEDS: Sertraline 100 MG TAB PO SCH (11:36)
[2022-11-24] MEDS: methylPREDNISolone Sod Succ 40 MG VIAL IVP SCH (11:36)
[2022-11-24] MEDS: Sodium Chloride 0.9% 1,000 ML IV SCH (18:01)
[2022-11-25 05:20] LABS: #Monocytes 1.7 thou/uL (0.11-0.59); #Neutrophils 7.3 thou/uL (1.40-6.50); %Basophils 0.2 % (0.0-1.0); %Eosinophils 0.4 % (0.0-10.0); %Lymphocytes 16.6 % (21.0-51.0); %Monocytes 15.3 % (0.0-10.0); %Neutrophils 66.7 % (42.0-75.0); Hemoglobin 9.9 g/dL (12.0-16.0); Mean Corpuscular HGB CONC 30.2 g/dL (32.0-36.0); Mean Corpuscular Hemoglobin 26.4 pg (27.0-31.0); Mean Corpuscular Volume 87.5 fl (78.0-98.0); Mean Platelet Volume 9.2 fL (7.4-10.4); Platelet Count 135 10x3/uL (130-400); RBC Distribution Width 17.7 % (11.5-14.5); Red Blood Cell (RBC) Count 3.75 mill/uL (4.20-5.40); White Blood Cell (WBC) Count 10.9 10x3/uL (4.8-10.8)
[2022-11-25 05:45] LABS: Anion Gap 12 mmol/L (10-20); BUN (Urea Nitrogen) 19 mg/dL (9.8-20.1); Calc. Creatinine Clearance 92 mL/min (70-130); Calcium 8.7 mg/dL (7.8-10.44); Carbon Dioxide 26 mmol/L (23-31); Chloride 106 mmol/L (98-107); Estimated GFR 91; Glucose 115 mg/dL (83-110); Potassium 3.8 mmol/L (3.5-5.1); Sodium 140 mmol/L (136-145)
[2022-11-25] MEDS: Rifaximin 550 MG TAB PO SCH ×2 (10:17→20:12)
[2022-11-25] MEDS: Flecainide 50 MG TAB PO SCH ×2 (10:17→20:12)
[2022-11-25] MEDS: Gabapentin 300 MG CAP PO SCH ×3 (10:17→20:11)
[2022-11-25] MEDS: Rosuvastatin 5 MG TAB PO SCH (10:17)
[2022-11-25] MEDS: Sertraline 100 MG TAB PO SCH (10:17)
[2022-11-25] MEDS: Metoprolol Tartrate 25 MG TAB PO SCH ×2 (10:17→20:12)
[2022-11-25] MEDS: methylPREDNISolone Sod Succ 40 MG VIAL IVP SCH (10:18)
[2022-11-25] MEDS: Vit A,C & E/Lutein/Minerals Tablet PO SCH ×2 (10:18→20:12)
[2022-11-25] MEDS: Montelukast Sodium 10 mg Tablet PO SCH (10:18)
[2022-11-25] MEDS: Multivit, Therapeutic 1 TAB PO SCH (10:18)
[2022-11-25] MEDS: Folic Acid 1 MG TAB PO SCH (10:18)
[2022-11-25] MEDS: levETIRAcetam 500 MG/5 ML VIAL SLOW IVP SCH ×2 (10:18→20:12)
[2022-11-25] MEDS: Aspirin Chewable 81 MG TAB PO SCH (10:18)
[2022-11-25] MEDS: Cefepime 2 GM in Sodium Chloride 0.9% 100 ML IVPB SCH (10:18)
[2022-11-25] MEDS: Benztropine 1 MG TAB PO SCH ×2 (10:18→20:10)
[2022-11-25] MEDS: Sodium Chloride 0.9% 1,000 ML IV SCH (18:14)
[2022-11-26] MEDS: Estrogens, Conjugated 30 GM TUBE VAG SCH ×2 (02:06→23:22)
[2022-11-26 05:07] LABS: #Eosinphils 0.1 thou/uL (0.0-0.7); #Monocytes 1.2 thou/uL (0.11-0.59); #Neutrophils 7.4 thou/uL (1.40-6.50); %Basophils 0.2 % (0.0-1.0); %Eosinophils 0.7 % (0.0-10.0); %Monocytes 11.4 % (0.0-10.0); %Neutrophils 69.8 % (42.0-75.0); Hemoglobin 10.4 g/dL (12.0-16.0); Mean Corpuscular HGB CONC 30.1 g/dL (32.0-36.0); Mean Corpuscular Hemoglobin 26.7 pg (27.0-31.0); Mean Corpuscular Volume 88.9 fl (78.0-98.0); Mean Platelet Volume 9.4 fL (7.4-10.4); Platelet Count 188 10x3/uL (130-400); RBC Distribution Width 17.6 % (11.5-14.5); Red Blood Cell (RBC) Count 3.89 mill/uL (4.20-5.40); White Blood Cell (WBC) Count 10.6 10x3/uL (4.8-10.8)
[2022-11-26 05:29] LABS: Anion Gap 11 mmol/L (10-20); BUN (Urea Nitrogen) 23 mg/dL (9.8-20.1); Calc. Creatinine Clearance 98 mL/min (70-130); Calcium 8.8 mg/dL (7.8-10.44); Carbon Dioxide 26 mmol/L (23-31); Chloride 106 mmol/L (98-107); Estimated GFR 93; Glucose 111 mg/dL (83-110); Potassium 3.3 mmol/L (3.5-5.1); Sodium 140 mmol/L (136-145)
[2022-11-26] MEDS ORDERED: Potassium Chloride 20 MEQ TAB PO SCH (08:00)
[2022-11-26] MEDS: levETIRAcetam 500 MG/5 ML VIAL SLOW IVP SCH ×2 (09:30→21:42)
[2022-11-26] MEDS: Aspirin Chewable 81 MG TAB PO SCH (09:33)
[2022-11-26] MEDS: Benztropine 1 MG TAB PO SCH ×2 (09:33→21:42)
[2022-11-26] MEDS: Flecainide 50 MG TAB PO SCH ×2 (09:34→21:42)
[2022-11-26] MEDS: Metoprolol Tartrate 25 MG TAB PO SCH ×3 (09:35→21:42)
[2022-11-26] MEDS: Multivit, Therapeutic 1 TAB PO SCH (09:35)
[2022-11-26] MEDS: Folic Acid 1 MG TAB PO SCH (09:35)
[2022-11-26] MEDS: Montelukast Sodium 10 mg Tablet PO SCH (09:35)
[2022-11-26] MEDS: Gabapentin 300 MG CAP PO SCH ×3 (09:35→21:42)
[2022-11-26] MEDS: Rosuvastatin 5 MG TAB PO SCH (09:36)
[2022-11-26] MEDS: Sertraline 100 MG TAB PO SCH (09:36)
[2022-11-26] MEDS: Rifaximin 550 MG TAB PO SCH ×2 (09:36→21:42)
[2022-11-26] MEDS: Vit A,C & E/Lutein/Minerals Tablet PO SCH ×2 (09:36→21:42)
[2022-11-26] MEDS ORDERED: Potassium Bicarbonate/Cit Ac 20 MEQ TAB PO SCH (10:00)
[2022-11-26 15:41] LABS: Potassium 3.7 mmol/L (3.5-5.1)
[2022-11-27] MEDS: Benztropine 1 MG TAB PO SCH ×2 (09:20→21:13)
[2022-11-27] MEDS: Folic Acid 1 MG TAB PO SCH (09:20)
[2022-11-27] MEDS: Flecainide 50 MG TAB PO SCH ×2 (09:20→21:13)
[2022-11-27] MEDS: Aspirin Chewable 81 MG TAB PO SCH (09:20)
[2022-11-27] MEDS: Gabapentin 300 MG CAP PO SCH ×3 (09:20→21:13)
[2022-11-27] MEDS: Montelukast Sodium 10 mg Tablet PO SCH (09:22)
[2022-11-27] MEDS: Rifaximin 550 MG TAB PO SCH ×2 (09:22→21:13)
[2022-11-27] MEDS: Vit A,C & E/Lutein/Minerals Tablet PO SCH ×2 (09:22→21:13)
[2022-11-27] MEDS: Sertraline 100 MG TAB PO SCH (09:22)
[2022-11-27] MEDS: Pantoprazole 40 MG GRANULES PACKET PO SCH (09:22)
[2022-11-27] MEDS: Multivit, Therapeutic 1 TAB PO SCH (09:22)
[2022-11-27] MEDS: levETIRAcetam 500 MG/5 ML VIAL SLOW IVP SCH ×2 (09:22→21:13)
[2022-11-27] MEDS: Rosuvastatin 5 MG TAB PO SCH (09:22)
[2022-11-27] MEDS: Metoprolol Tartrate 25 MG TAB PO SCH ×3 (09:22→21:13)
[2022-11-27] MEDS: Estrogens, Conjugated 30 GM TUBE VAG SCH (21:14)
[2022-11-28] MEDS: Folic Acid 1 MG TAB PO SCH (08:50)
[2022-11-28] MEDS: Flecainide 50 MG TAB PO SCH ×2 (08:50→22:13)
[2022-11-28] MEDS: Benztropine 1 MG TAB PO SCH ×2 (08:50→22:13)
[2022-11-28] MEDS: Aspirin Chewable 81 MG TAB PO SCH (08:50)
[2022-11-28] MEDS: Gabapentin 300 MG CAP PO SCH ×3 (08:51→22:13)
[2022-11-28] MEDS: levETIRAcetam 500 MG/5 ML VIAL SLOW IVP SCH ×2 (08:52→22:13)
[2022-11-28] MEDS: Vit A,C & E/Lutein/Minerals Tablet PO SCH ×2 (08:52→22:13)
[2022-11-28] MEDS: Montelukast Sodium 10 mg Tablet PO SCH (08:52)
[2022-11-28] MEDS: Metoprolol Tartrate 25 MG TAB PO SCH ×3 (08:52→22:14)
[2022-11-28] MEDS: Rifaximin 550 MG TAB PO SCH ×2 (08:52→22:13)
[2022-11-28] MEDS: Sertraline 100 MG TAB PO SCH (08:52)
[2022-11-28] MEDS: Pantoprazole 40 MG GRANULES PACKET PO SCH (08:53)
[2022-11-28] MEDS: Multivit, Therapeutic 1 TAB PO SCH (08:53)
[2022-11-28] MEDS: Rosuvastatin 5 MG TAB PO SCH (08:53)
[2022-11-28] MEDS: Lactated Ringer's 1,000 ML IV SCH (14:41)
[2022-11-28] MEDS: Estrogens, Conjugated 30 GM TUBE VAG SCH (22:15)
[2022-11-29 04:07] LABS: #Eosinphils 0.4 thou/uL (0.0-0.7); #Monocytes 0.8 thou/uL (0.11-0.59); #Neutrophils 6.8 thou/uL (1.40-6.50); %Basophils 0.4 % (0.0-1.0); %Eosinophils 3.9 % (0.0-10.0); %Lymphocytes 23.6 % (21.0-51.0); %Monocytes 7.6 % (0.0-10.0); %Neutrophils 63.9 % (42.0-75.0); Hemoglobin 9.7 g/dL (12.0-16.0); Mean Corpuscular HGB CONC 30.3 g/dL (32.0-36.0); Mean Corpuscular Hemoglobin 26.4 pg (27.0-31.0); Platelet Count 179 10x3/uL (130-400); RBC Distribution Width 17.3 % (11.5-14.5); Red Blood Cell (RBC) Count 3.68 mill/uL (4.20-5.40); White Blood Cell (WBC) Count 10.6 10x3/uL (4.8-10.8)
[2022-11-29 04:32] LABS: Anion Gap 10 mmol/L (10-20); BUN (Urea Nitrogen) 22 mg/dL (9.8-20.1); Calc. Creatinine Clearance 104 mL/min (70-130); Calcium 8.5 mg/dL (7.8-10.44); Carbon Dioxide 30 mmol/L (23-31); Chloride 103 mmol/L (98-107); Estimated GFR 95; Glucose 86 mg/dL (83-110); Potassium 3.6 mmol/L (3.5-5.1); Sodium 139 mmol/L (136-145)
[2022-11-29 04:35] VITALS: TEMP 97.3
[2022-11-29 08:05] VITALS: BP 116/73
[2022-11-29] MEDS: Vit A,C & E/Lutein/Minerals Tablet PO SCH (09:36)
[2022-11-29] MEDS: Aspirin Chewable 81 MG TAB PO SCH (09:36)
[2022-11-29] MEDS: Benztropine 1 MG TAB PO SCH (09:36)
[2022-11-29] MEDS: Montelukast Sodium 10 mg Tablet PO SCH (09:36)
[2022-11-29] MEDS: Flecainide 50 MG TAB PO SCH (09:36)
[2022-11-29] MEDS: Metoprolol Tartrate 25 MG TAB PO SCH (09:37)
[2022-11-29] MEDS: Multivit, Therapeutic 1 TAB PO SCH (09:37)
[2022-11-29] MEDS: Rosuvastatin 5 MG TAB PO SCH (09:37)
[2022-11-29] MEDS: Sertraline 100 MG TAB PO SCH (09:37)
[2022-11-29] MEDS: Gabapentin 300 MG CAP PO SCH (09:37)
[2022-11-29] MEDS: levETIRAcetam 500 MG/5 ML VIAL SLOW IVP SCH (09:38)
[2022-11-29] MEDS: Pantoprazole 40 MG GRANULES PACKET PO SCH (09:38)
[2022-11-29] MEDS: Folic Acid 1 MG TAB PO SCH (09:38)
[2022-11-29] MEDS: Rifaximin 550 MG TAB PO SCH (10:00)
[2022-11-29] MEDS: Lactated Ringer's 1,000 ML IV SCH (10:46)
[2022-11-29] MEDS ORDERED: Estrogens, Conjugated 30 GM TUBE VAG SCH (21:00)
== END 2022-11-29 11:45 | DRG 441 ==
LOC: ERS 15:10 → IMCU/EMU 19:10 → 2NO 11-21 17:59
PROVIDERS: ADMIT Student in an Organized Health Care Education/Training Program; ATTEND Family Medicine
PROC: 30233J1 Transfusion of Nonautologous Serum Albumin into Peripheral Vein, Percutaneous Approach (ICD-10-PCS; principal; 2022-11-18)
DX: K76.82 Hepatic encephalopathy (principal); E43 Unspecified severe protein-calorie malnutrition; N39.0 Urinary tract infection, site not specified; I50.32 Chronic diastolic (congestive) heart failure; K70.30 Alcoholic cirrhosis of liver without ascites; E87.6 Hypokalemia; Z66 Do not resuscitate; G62.9 Polyneuropathy, unspecified; F32.A Depression, unspecified; I48.0 Paroxysmal atrial fibrillation; R13.10 Dysphagia, unspecified; R53.81 Other malaise; G25.0 Essential tremor; Z90.49 Acquired absence of other specified parts of digestive tract; Z68.30 Body mass index [BMI] 30.0-30.9, adult; Z98.890 Other specified postprocedural states; Z88.2 Allergy status to sulfonamides; Z88.4 Allergy status to anesthetic agent; Z79.82 Long term (current) use of aspirin; Z79.899 Other long term (current) drug therapy; Z82.49 Family history of ischemic heart disease and other diseases of the circulatory system; Z98.51 Tubal ligation status; Z20.822 Contact with and (suspected) exposure to COVID-19
CPT/HCPCS: 36415; 36416; 51701; 70450; 70496; 70498; 70551; 71045; 74177; 74230; 76705; 80048; 80053; 80306; 80307; 81001; 82140; 82550; 83605; 83690; 83735; 83880; 84100; 84443; 84484; 85025; 85610; 85730; 87040; 87086; 93005; 93010; 93306; 94760; 95816; 95819; 95957; 96361; 96365; 96374; 96375; J0692; J0696; J1160; J1940; J1953; J2543; J2920; J3010; J3411; J3475; J3480; J3490; J7030; J7042; J7050; J7120; P9047; Q9967; S0028; U0002

== ENCOUNTER 2022-12-13 09:06 | Inpatient (IN) | payer MEDICARE ==
[2022-12-13 09:33] LABS: #Eosinphils 0.3 thou/uL (0.0-0.7); #Monocytes 0.5 thou/uL (0.11-0.59); #Neutrophils 3.9 thou/uL (1.40-6.50); %Basophils 0.3 % (0.0-1.0); %Eosinophils 4.3 % (0.0-10.0); %Lymphocytes 30.8 % (21.0-51.0); %Neutrophils 57.3 % (42.0-75.0); Hemoglobin 10.2 g/dL (12.0-16.0); Mean Corpuscular HGB CONC 30.9 g/dL (32.0-36.0); Mean Corpuscular Hemoglobin 26.9 pg (27.0-31.0); Mean Corpuscular Volume 87.1 fl (78.0-98.0); Mean Platelet Volume 9.5 fL (7.4-10.4); Platelet Count 191 10x3/uL (130-400); RBC Distribution Width 17.7 % (11.5-14.5); Red Blood Cell (RBC) Count 3.79 mill/uL (4.20-5.40); White Blood Cell (WBC) Count 6.8 10x3/uL (4.8-10.8)
[2022-12-13 09:44] LABS: ALT (SGPT) 9 U/L (8-55); AST (SGOT) 17 U/L (5-34); Alkaline Phosphatase 74 U/L (40-110); Anion Gap 15 mmol/L (10-20); BUN (Urea Nitrogen) 11 mg/dL (9.8-20.1); Bilirubin, Total 0.7 mg/dL (0.2-1.2); Calc. Creatinine Clearance 0 mL/min (70-130); Calcium 8.6 mg/dL (7.8-10.44); Carbon Dioxide 26 mmol/L (23-31); Chloride 105 mmol/L (98-107); Estimated GFR 91; Globulin 3.2 g/dL (2.4-3.5); Glucose 101 mg/dL (83-110); Protein, Total 6.2 g/dL (5.8-8.1); Sodium 142 mmol/L (136-145)
[2022-12-13 09:45] LABS: INR-International Normal Ratio 1.1; PTT 26.7 sec (22.9-36.1); Prothrombin Time 14.1 sec (12.0-14.7)
[2022-12-13] MEDS ORDERED: Iopamidol-370 76% 500 ML MDV (1 ML CHARGE) ONE (11:48)
[2022-12-13 11:56] LABS: Bacteria/HPF 4+ HPF (None Seen); Bilirubin Negative (Negative); Blood, Urine Negative (Negative); CAUTI Indications for Culture Dysuria,urgency,freq; Clarity Turbid (Clear); Glucose, Urine (Dipstick) Normal (Negative); Ketone, Urine Negative (Negative); Leukocyte 500 Leu/uL (Negative); Nitrite 2+ (Negative); Protein, Urine (Dipstick) 10 mg/dL (Neg-Trace); Specific Gravity, Urine 1.017 (1.002-1.036); Squamous Epithelial 0-3 HPF (0-3); Urobilinogen Normal mg/dL (Less than 2); WBC/HPF Greater than 50 HPF (0-3)
[2022-12-13 11:58] LABS: Urine Culture Reflex Yes Yes
[2022-12-13] MEDS ORDERED: cefTRIAXone (ROCEPHIN) 2 GM VIAL ONE (12:32)
[2022-12-13] MEDS ORDERED: hydrALAZINE 20 MG/ML VIAL SLOW IVP PRN (15:07)
[2022-12-13 16:26] VITALS: BMI 29.8
[2022-12-13] MEDS: Sodium Chloride 0.9% 1,000 ML IV SCH (17:26)
[2022-12-13] MEDS: levETIRAcetam 500 MG/5 ML VIAL SLOW IVP SCH (21:35)
[2022-12-14] MEDS: Sodium Chloride 0.9% 1,000 ML IV SCH ×2 (04:54→21:22)
[2022-12-14 04:59] LABS: #Eosinphils 0.3 thou/uL (0.0-0.7); #Monocytes 0.5 thou/uL (0.11-0.59); %Basophils 0.1 % (0.0-1.0); %Eosinophils 3.6 % (0.0-10.0); %Lymphocytes 21.6 % (21.0-51.0); %Monocytes 7.2 % (0.0-10.0); %Neutrophils 67.2 % (42.0-75.0); Hemoglobin 9.6 g/dL (12.0-16.0); Mean Corpuscular HGB CONC 30.9 g/dL (32.0-36.0); Mean Corpuscular Hemoglobin 26.7 pg (27.0-31.0); Mean Corpuscular Volume 86.4 fl (78.0-98.0); Mean Platelet Volume 9.1 fL (7.4-10.4); Platelet Count 160 10x3/uL (130-400); RBC Distribution Width 17.8 % (11.5-14.5); White Blood Cell (WBC) Count 7.5 10x3/uL (4.8-10.8)
[2022-12-14 05:22] LABS: Anion Gap 16 mmol/L (10-20); BUN (Urea Nitrogen) 11 mg/dL (9.8-20.1); Calc. Creatinine Clearance 82 mL/min (70-130); Calcium 8.5 mg/dL (7.8-10.44); Carbon Dioxide 22 mmol/L (23-31); Chloride 108 mmol/L (98-107); Cholesterol 101 mg/dl (< 200 Desired); Estimated GFR 90; Glucose 96 mg/dL (83-110); HDL Cholesterol 25 mg/dL (>60 Neg Risk); LDL Cholesterol, Calculated 58 mg/dL; Potassium 3.6 mmol/L (3.5-5.1); Sodium 142 mmol/L (136-145); Triglycerides 91 mg/dL (Less than 150)
[2022-12-14] MEDS ORDERED: Metoprolol Tartrate 25 MG TAB PO SCH (09:00)
[2022-12-14] MEDS: levETIRAcetam 500 MG/5 ML VIAL SLOW IVP SCH ×2 (09:52→21:23)
[2022-12-14] MEDS: Aspirin 300 MG Suppository PR SCH (09:52)
[2022-12-14] MEDS ORDERED: cefTRIAXone\\ROCEPHIN 2 GM in Sodium Chloride 0.9% 100 ML IVPB SCH (12:00)
[2022-12-14] MEDS: Acetaminophen 650 MG Suppository PR PRN (12:36)
[2022-12-14] MEDS ORDERED: Rifaximin 550 MG TAB PO SCH ×2 (13:30→21:00)
[2022-12-14] MEDS: Metoprolol Tartrate 25 MG TAB PO SCH ×2 (16:26→21:25)
[2022-12-14] MEDS ORDERED: Lorazepam 2 MG/ML VIAL SLOW IVP SCH (17:15)
[2022-12-14] MEDS ORDERED: Lorazepam 2 MG/ML VIAL IM PRN (17:25)
[2022-12-14] MEDS ORDERED: Electrolyte Replacement Protocol FS SCH (17:30)
[2022-12-14] MEDS ORDERED: Lorazepam 0.5 MG TAB PO PRN (17:47)
[2022-12-14] MEDS: Flecainide 50 MG TAB PO SCH (21:24)
[2022-12-14] MEDS: Rifaximin 550 MG TAB PO SCH (21:24)
[2022-12-14] MEDS: Vit A,C & E/Lutein/Minerals Tablet PO SCH (21:39)
[2022-12-15 05:45] LABS: #Eosinphils 0.5 thou/uL (0.0-0.7); #Monocytes 0.5 thou/uL (0.11-0.59); #Neutrophils 3.8 thou/uL (1.40-6.50); %Basophils 0.2 % (0.0-1.0); %Eosinophils 8.8 % (0.0-10.0); %Lymphocytes 21.4 % (21.0-51.0); %Monocytes 7.5 % (0.0-10.0); %Neutrophils 61.8 % (42.0-75.0); Hemoglobin 9.1 g/dL (12.0-16.0); Mean Corpuscular HGB CONC 29.6 g/dL (32.0-36.0); Mean Corpuscular Hemoglobin 26.4 pg (27.0-31.0); Mean Platelet Volume 9.2 fL (7.4-10.4); Platelet Count 137 10x3/uL (130-400); RBC Distribution Width 17.9 % (11.5-14.5); Red Blood Cell (RBC) Count 3.45 mill/uL (4.20-5.40); White Blood Cell (WBC) Count 6.2 10x3/uL (4.8-10.8)
[2022-12-15 06:05] LABS: Phosphorus 4.3 mg/dL (2.3-4.7)
[2022-12-15 06:14] LABS: Anion Gap 12 mmol/L (10-20); BUN (Urea Nitrogen) 10 mg/dL (9.8-20.1); Calc. Creatinine Clearance 84 mL/min (70-130); Carbon Dioxide 23 mmol/L (23-31); Chloride 112 mmol/L (98-107); Estimated GFR 90; Glucose 93 mg/dL (83-110); Magnesium 1.8 mg/dL (1.6-2.6); Potassium 3.4 mmol/L (3.5-5.1); Sodium 144 mmol/L (136-145)
[2022-12-15] MEDS ORDERED: Potassium Chloride 20 MEQ TAB PO SCH (08:00)
[2022-12-15] MEDS ORDERED: Magnesium 2 GM/50 ML(in water) 2 GM in Premix Bag 1 BAG IVPB SCH (08:00)
[2022-12-15] MEDS ORDERED: Multivit, Therapeutic 1 TAB PO SCH (09:00)
[2022-12-15] MEDS: Sodium Chloride 0.9% 1,000 ML IV SCH ×2 (09:05→22:12)
[2022-12-15] MEDS: levETIRAcetam 500 MG/5 ML VIAL SLOW IVP SCH ×2 (09:07→22:15)
[2022-12-15] MEDS: Aspirin 300 MG Suppository PR SCH (09:26)
[2022-12-15] MEDS: Aspirin 81 mg Enteric Coated Tablet PO SCH (09:27)
[2022-12-15] MEDS ORDERED: Lorazepam 2 MG/ML VIAL SLOW IVP SCH ×3 (09:30→16:00)
[2022-12-15] MEDS: Flecainide 50 MG TAB PO SCH (10:06)
[2022-12-15] MEDS: Metoprolol Tartrate 25 MG TAB PO SCH ×4 (10:06→22:14)
[2022-12-15] MEDS: Potassium Chloride 20 MEQ in Premix Bag 1 BAG IVPB SCH ×2 (10:53→13:51)
[2022-12-15] MEDS ORDERED: Meropenem 1 GM in Sodium Chloride 0.9% 100 ML IVPB SCH ×3 (11:15→20:00)
[2022-12-15] MEDS: Rosuvastatin 5 MG TAB PO SCH (12:35)
[2022-12-15] MEDS: Rifaximin 550 MG TAB PO SCH ×2 (12:35→19:34)
[2022-12-15] MEDS: Vit A,C & E/Lutein/Minerals Tablet PO SCH ×2 (12:35→22:30)
[2022-12-15] MEDS: Folic Acid 1 MG TAB PO SCH (12:35)
[2022-12-15] MEDS: Acetaminophen 650 MG Suppository PR PRN (15:12)
[2022-12-15] MEDS ORDERED: Rifaximin 550 MG TAB PO SCH (16:00)
[2022-12-15] MEDS ORDERED: Lorazepam 2 MG/ML VIAL SLOW IVP PRN (16:39)
[2022-12-15] MEDS ORDERED: Lorazepam 0.5 MG TAB PO PRN (17:48)
[2022-12-15] MEDS ORDERED: levETIRAcetam in NS 1,000 MG in Premix Bag 1 BAG IVPB SCH (21:00)
[2022-12-16] MEDS ORDERED: traMADol HCl 50 MG TAB PO SCH (04:15)
[2022-12-16 04:57] LABS: #Eosinphils 0.6 thou/uL (0.0-0.7); #Monocytes 0.5 thou/uL (0.11-0.59); #Neutrophils 3.2 thou/uL (1.40-6.50); %Basophils 0.2 % (0.0-1.0); %Eosinophils 9.6 % (0.0-10.0); %Lymphocytes 29.2 % (21.0-51.0); %Monocytes 8.1 % (0.0-10.0); %Neutrophils 52.6 % (42.0-75.0); Hemoglobin 9.8 g/dL (12.0-16.0); Mean Corpuscular HGB CONC 29.5 g/dL (32.0-36.0); Mean Corpuscular Hemoglobin 26.3 pg (27.0-31.0); Mean Platelet Volume 8.9 fL (7.4-10.4); Platelet Count 165 10x3/uL (130-400); RBC Distribution Width 17.6 % (11.5-14.5); Red Blood Cell (RBC) Count 3.73 mill/uL (4.20-5.40); White Blood Cell (WBC) Count 6.1 10x3/uL (4.8-10.8)
[2022-12-16 05:21] LABS: Anion Gap 12 mmol/L (10-20); BUN (Urea Nitrogen) 9 mg/dL (9.8-20.1); Calc. Creatinine Clearance 86 mL/min (70-130); Calcium 8.3 mg/dL (7.8-10.44); Carbon Dioxide 22 mmol/L (23-31); Chloride 114 mmol/L (98-107); Estimated GFR 91; Glucose 83 mg/dL (83-110); Potassium 3.8 mmol/L (3.5-5.1); Sodium 144 mmol/L (136-145)
[2022-12-16] MEDS ORDERED: Vancomycin 1.5 GM in Premix Bag 1 BAG IVPB SCH (08:45)
[2022-12-16] MEDS: Meropenem 1 GM in Sodium Chloride 0.9% 100 ML IVPB SCH ×2 (08:59→16:58)
[2022-12-16] MEDS: Aspirin 300 MG Suppository PR SCH (09:00)
[2022-12-16] MEDS: Rosuvastatin 5 MG TAB PO SCH (09:00)
[2022-12-16] MEDS: Rifaximin 550 MG TAB PO SCH ×2 (09:00→21:40)
[2022-12-16] MEDS: Vit A,C & E/Lutein/Minerals Tablet PO SCH ×2 (09:00→21:40)
[2022-12-16] MEDS: Aspirin 81 mg Enteric Coated Tablet PO SCH (09:00)
[2022-12-16] MEDS: Folic Acid 1 MG TAB PO SCH (09:00)
[2022-12-16] MEDS: levETIRAcetam 500 MG/5 ML VIAL SLOW IVP SCH ×2 (09:00→21:40)
[2022-12-16] MEDS: Metoprolol Tartrate 25 MG TAB PO SCH (09:05)
[2022-12-16] MEDS ORDERED: Metoprolol Tartrate 25 MG TAB PO SCH (09:06)
[2022-12-16] MEDS: Metoprolol Tartrate 50 MG TAB PO SCH ×3 (09:41→21:58)
[2022-12-16] MEDS: VANCOMYCIN 1.25 GM/250 ML BAG 1.25 GM in Premix Bag 1 BAG IVPB SCH ×2 (10:49→21:40)
[2022-12-16] MEDS: Digoxin 0.5 MG/2 ML AMP SLOW IVP SCH ×3 (10:50→22:53)
[2022-12-16] MEDS: Sodium Chloride 0.9% 1,000 ML IV SCH ×2 (10:50→23:03)
[2022-12-16] MEDS ORDERED: cefTRIAXone\\ROCEPHIN 2 GM in Sodium Chloride 0.9% 100 ML IVPB SCH (12:00)
[2022-12-16] MEDS ORDERED: Lorazepam 0.5 MG TAB PO PRN (17:48)
[2022-12-16] MEDS ORDERED: Vancomycin 1 GM in Premix Bag 1 BAG IVPB SCH (21:00)
[2022-12-17] MEDS: Meropenem 1 GM in Sodium Chloride 0.9% 100 ML IVPB SCH ×3 (00:57→16:51)
[2022-12-17 08:14] LABS: #Eosinphils 0.5 thou/uL (0.0-0.7); #Monocytes 0.5 thou/uL (0.11-0.59); #Neutrophils 3.8 thou/uL (1.40-6.50); %Basophils 0.3 % (0.0-1.0); %Eosinophils 6.8 % (0.0-10.0); %Lymphocytes 28.2 % (21.0-51.0); %Monocytes 7.1 % (0.0-10.0); %Neutrophils 57.3 % (42.0-75.0); Hemoglobin 9.9 g/dL (12.0-16.0); Mean Corpuscular HGB CONC 31.1 g/dL (32.0-36.0); Mean Corpuscular Hemoglobin 26.8 pg (27.0-31.0); Mean Corpuscular Volume 86.2 fl (78.0-98.0); Mean Platelet Volume 8.6 fL (7.4-10.4); Platelet Count 146 10x3/uL (130-400); RBC Distribution Width 17.5 % (11.5-14.5); Red Blood Cell (RBC) Count 3.69 mill/uL (4.20-5.40); White Blood Cell (WBC) Count 6.6 10x3/uL (4.8-10.8)
[2022-12-17 08:45] LABS: Anion Gap 13 mmol/L (10-20); BUN (Urea Nitrogen) 6 mg/dL (9.8-20.1); Calc. Creatinine Clearance 101 mL/min (70-130); Calcium 8.2 mg/dL (7.8-10.44); Carbon Dioxide 23 mmol/L (23-31); Chloride 110 mmol/L (98-107); Estimated GFR 94; Glucose 82 mg/dL (83-110); Iron 33 ug/dL (50-170); Iron Binding Capacity, Total 206 mcg/dL (265-497); Potassium 3.6 mmol/L (3.5-5.1); Sodium 142 mmol/L (136-145)
[2022-12-17 08:46] LABS: Iron 35 ug/dL (50-170); Iron Binding Capacity, Total 204 mcg/dL (265-497)
[2022-12-17] MEDS: Aspirin 81 mg Enteric Coated Tablet PO SCH (08:50)
[2022-12-17] MEDS: Metoprolol Tartrate 50 MG TAB PO SCH ×3 (08:50→21:58)
[2022-12-17] MEDS: Rosuvastatin 5 MG TAB PO SCH (08:50)
[2022-12-17] MEDS: Folic Acid 1 MG TAB PO SCH (08:50)
[2022-12-17] MEDS: Aspirin 300 MG Suppository PR SCH (08:50)
[2022-12-17] MEDS: levETIRAcetam 500 MG/5 ML VIAL SLOW IVP SCH ×2 (08:50→21:58)
[2022-12-17] MEDS: Rifaximin 550 MG TAB PO SCH ×2 (08:50→21:57)
[2022-12-17] MEDS: Vit A,C & E/Lutein/Minerals Tablet PO SCH ×2 (08:50→21:57)
[2022-12-17] MEDS: VANCOMYCIN 1.25 GM/250 ML BAG 1.25 GM in Premix Bag 1 BAG IVPB SCH ×2 (10:31→23:02)
[2022-12-17] MEDS ORDERED: Lorazepam 0.5 MG TAB PO PRN (17:25)
[2022-12-17 22:03] LABS: Vancomycin, Trough 10.7 ug/mL
[2022-12-18] MEDS: Sodium Chloride 0.9% 1,000 ML IV SCH ×3 (01:48→15:20)
[2022-12-18] MEDS: Meropenem 1 GM in Sodium Chloride 0.9% 100 ML IVPB SCH ×3 (01:49→17:09)
[2022-12-18] MEDS: Vancomycin 1.5 GRAM/300 ML BAG 1.5 GM in Premix Bag 1 BAG IVPB SCH ×2 (01:49→10:32)
[2022-12-18 05:04] LABS: #Eosinphils 0.3 thou/uL (0.0-0.7); #Monocytes 0.5 thou/uL (0.11-0.59); #Neutrophils 3.7 thou/uL (1.40-6.50); %Basophils 0.3 % (0.0-1.0); %Eosinophils 4.8 % (0.0-10.0); %Lymphocytes 28.2 % (21.0-51.0); %Monocytes 7.6 % (0.0-10.0); %Neutrophils 58.6 % (42.0-75.0); Hemoglobin 9.9 g/dL (12.0-16.0); Mean Corpuscular HGB CONC 30.7 g/dL (32.0-36.0); Mean Corpuscular Hemoglobin 26.8 pg (27.0-31.0); Mean Corpuscular Volume 87.3 fl (78.0-98.0); Mean Platelet Volume 8.9 fL (7.4-10.4); Platelet Count 148 10x3/uL (130-400); RBC Distribution Width 17.4 % (11.5-14.5); White Blood Cell (WBC) Count 6.3 10x3/uL (4.8-10.8)
[2022-12-18 05:25] LABS: Anion Gap 13 mmol/L (10-20); BUN (Urea Nitrogen) 5 mg/dL (9.8-20.1); Calc. Creatinine Clearance 109 mL/min (70-130); Carbon Dioxide 22 mmol/L (23-31); Chloride 108 mmol/L (98-107); Estimated GFR 96; Glucose 86 mg/dL (83-110); Potassium 3.2 mmol/L (3.5-5.1); Sodium 140 mmol/L (136-145)
[2022-12-18] MEDS ORDERED: Potassium Chloride 20 MEQ TAB PO SCH (08:00)
[2022-12-18] MEDS: Folic Acid 1 MG TAB PO SCH (08:07)
[2022-12-18] MEDS: Metoprolol Tartrate 50 MG TAB PO SCH ×3 (08:07→20:17)
[2022-12-18] MEDS: levETIRAcetam 500 MG/5 ML VIAL SLOW IVP SCH ×2 (08:07→20:16)
[2022-12-18] MEDS: Aspirin 300 MG Suppository PR SCH (08:07)
[2022-12-18] MEDS: Vit A,C & E/Lutein/Minerals Tablet PO SCH ×2 (08:07→20:16)
[2022-12-18] MEDS: Aspirin 81 mg Enteric Coated Tablet PO SCH (08:07)
[2022-12-18] MEDS: Rosuvastatin 5 MG TAB PO SCH (08:07)
[2022-12-18] MEDS: Rifaximin 200 MG TAB PO SCH ×2 (09:23→20:16)
[2022-12-18] MEDS: Acetaminophen 650 MG Suppository PR PRN (09:23)
[2022-12-19] MEDS: Meropenem 1 GM in Sodium Chloride 0.9% 100 ML IVPB SCH ×3 (00:08→20:39)
[2022-12-19] MEDS: Vancomycin 1.5 GRAM/300 ML BAG 1.5 GM in Premix Bag 1 BAG IVPB SCH ×2 (00:10→13:20)
[2022-12-19] MEDS: Sodium Chloride 0.9% 1,000 ML IV SCH ×2 (05:04→17:10)
[2022-12-19 06:20] LABS: #Eosinphils 0.4 thou/uL (0.0-0.7); #Neutrophils 4.8 thou/uL (1.40-6.50); %Basophils 0.3 % (0.0-1.0); %Eosinophils 4.2 % (0.0-10.0); %Lymphocytes 28.6 % (21.0-51.0); %Monocytes 11.9 % (0.0-10.0); %Neutrophils 54.7 % (42.0-75.0); Mean Corpuscular HGB CONC 30.3 g/dL (32.0-36.0); Mean Corpuscular Hemoglobin 26.8 pg (27.0-31.0); Mean Corpuscular Volume 88.3 fl (78.0-98.0); Mean Platelet Volume 9.7 fL (7.4-10.4); Platelet Count 159 10x3/uL (130-400); RBC Distribution Width 17.9 % (11.5-14.5); Red Blood Cell (RBC) Count 4.11 mill/uL (4.20-5.40); White Blood Cell (WBC) Count 8.7 10x3/uL (4.8-10.8)
[2022-12-19 06:49] LABS: Anion Gap 13 mmol/L (10-20); BUN (Urea Nitrogen) 5 mg/dL (9.8-20.1); Calc. Creatinine Clearance 103 mL/min (70-130); Calcium 8.4 mg/dL (7.8-10.44); Carbon Dioxide 21 mmol/L (23-31); Chloride 109 mmol/L (98-107); Estimated GFR 95; Glucose 94 mg/dL (83-110); Potassium 3.6 mmol/L (3.5-5.1); Sodium 139 mmol/L (136-145)
[2022-12-19] MEDS: Vit A,C & E/Lutein/Minerals Tablet PO SCH ×2 (08:40→20:45)
[2022-12-19] MEDS: Aspirin 81 mg Enteric Coated Tablet PO SCH (08:40)
[2022-12-19] MEDS: Rosuvastatin 5 MG TAB PO SCH (08:40)
[2022-12-19] MEDS: Folic Acid 1 MG TAB PO SCH (08:40)
[2022-12-19] MEDS: Metoprolol Tartrate 50 MG TAB PO SCH ×3 (08:40→20:44)
[2022-12-19] MEDS: Rifaximin 200 MG TAB PO SCH ×2 (08:40→20:44)
[2022-12-19] MEDS: levETIRAcetam 500 MG/5 ML VIAL SLOW IVP SCH ×2 (08:41→20:43)
[2022-12-19] MEDS: Aspirin 300 MG Suppository PR SCH (08:41)
[2022-12-19 10:59] LABS: Vancomycin, Trough 27.1 ug/mL
[2022-12-20] MEDS: Vancomycin 1 GM in Premix Bag 1 BAG IVPB SCH ×2 (00:32→11:22)
[2022-12-20] MEDS: Acetaminophen 650 MG Suppository PR PRN (02:14)
[2022-12-20] MEDS: Meropenem 1 GM in Sodium Chloride 0.9% 100 ML IVPB SCH ×3 (05:40→21:02)
[2022-12-20] MEDS: Rifaximin 200 MG TAB PO SCH ×2 (08:42→21:03)
[2022-12-20] MEDS: Metoprolol Tartrate 50 MG TAB PO SCH ×3 (08:42→21:02)
[2022-12-20] MEDS: Sodium Chloride 0.9% 1,000 ML IV SCH (08:42)
[2022-12-20] MEDS: Aspirin 81 mg Enteric Coated Tablet PO SCH (08:42)
[2022-12-20] MEDS: Rosuvastatin 5 MG TAB PO SCH (08:42)
[2022-12-20] MEDS: Vit A,C & E/Lutein/Minerals Tablet PO SCH ×2 (08:42→21:02)
[2022-12-20] MEDS: Folic Acid 1 MG TAB PO SCH (08:42)
[2022-12-20] MEDS: levETIRAcetam 500 MG/5 ML VIAL SLOW IVP SCH ×2 (08:43→21:03)
[2022-12-20 09:56] LABS: #Eosinphils 0.1 thou/uL (0.0-0.7); #Monocytes 0.9 thou/uL (0.11-0.59); #Neutrophils 4.5 thou/uL (1.40-6.50); %Basophils 0.1 % (0.0-1.0); %Eosinophils 1.6 % (0.0-10.0); %Lymphocytes 26.3 % (21.0-51.0); %Monocytes 12.3 % (0.0-10.0); %Neutrophils 59.3 % (42.0-75.0); Mean Corpuscular Volume 87.1 fl (78.0-98.0); Mean Platelet Volume 9.5 fL (7.4-10.4); Platelet Count 139 10x3/uL (130-400); RBC Distribution Width 17.6 % (11.5-14.5); Red Blood Cell (RBC) Count 3.71 mill/uL (4.20-5.40); White Blood Cell (WBC) Count 7.6 10x3/uL (4.8-10.8)
[2022-12-20 10:15] LABS: Anion Gap 12 mmol/L (10-20); BUN (Urea Nitrogen) 7 mg/dL (9.8-20.1); Calc. Creatinine Clearance 111 mL/min (70-130); Calcium 8.3 mg/dL (7.8-10.44); Carbon Dioxide 24 mmol/L (23-31); Chloride 109 mmol/L (98-107); Estimated GFR 96; Glucose 118 mg/dL (83-110); Potassium 2.8 mmol/L (3.5-5.1); Sodium 142 mmol/L (136-145)
[2022-12-20] MEDS ORDERED: Potassium Bicarbonate/Cit Ac 20 MEQ TAB PO SCH (12:00)
[2022-12-20] MEDS: Potassium Chloride 20 MEQ in Premix Bag 1 BAG IVPB SCH ×4 (13:02→19:19)
[2022-12-21] MEDS: Vancomycin 1 GM in Premix Bag 1 BAG IVPB SCH ×3 (01:09→23:50)
[2022-12-21 05:41] LABS: #Eosinphils 0.1 thou/uL (0.0-0.7); #Monocytes 0.7 thou/uL (0.11-0.59); %Basophils 0.1 % (0.0-1.0); %Eosinophils 1.8 % (0.0-10.0); %Lymphocytes 20.6 % (21.0-51.0); %Neutrophils 68.2 % (42.0-75.0); Hemoglobin 10.3 g/dL (12.0-16.0); Mean Corpuscular HGB CONC 30.7 g/dL (32.0-36.0); Mean Corpuscular Hemoglobin 26.5 pg (27.0-31.0); Mean Corpuscular Volume 86.6 fl (78.0-98.0); Mean Platelet Volume 9.8 fL (7.4-10.4); Platelet Count 153 10x3/uL (130-400); RBC Distribution Width 17.6 % (11.5-14.5); Red Blood Cell (RBC) Count 3.88 mill/uL (4.20-5.40); White Blood Cell (WBC) Count 7.3 10x3/uL (4.8-10.8)
[2022-12-21 06:05] LABS: Anion Gap 15 mmol/L (10-20); BUN (Urea Nitrogen) 11 mg/dL (9.8-20.1); Calc. Creatinine Clearance 109 mL/min (70-130); Calcium 8.4 mg/dL (7.8-10.44); Carbon Dioxide 20 mmol/L (23-31); Chloride 109 mmol/L (98-107); Estimated GFR 96; Glucose 124 mg/dL (83-110); Potassium 3.7 mmol/L (3.5-5.1); Sodium 140 mmol/L (136-145)
[2022-12-21] MEDS: Meropenem 1 GM in Sodium Chloride 0.9% 100 ML IVPB SCH ×3 (06:07→20:45)
[2022-12-21] MEDS: Sodium Chloride 0.9% 1,000 ML IV SCH ×2 (06:08→16:20)
[2022-12-21] MEDS: Ferrous Sulfate 325 MG TAB PO SCH (08:53)
[2022-12-21] MEDS: Rifaximin 200 MG TAB PO SCH ×2 (08:53→20:46)
[2022-12-21] MEDS: Vit A,C & E/Lutein/Minerals Tablet PO SCH ×2 (08:53→20:46)
[2022-12-21] MEDS: levETIRAcetam 500 MG/5 ML VIAL SLOW IVP SCH ×2 (08:54→20:44)
[2022-12-21] MEDS: Folic Acid 1 MG TAB PO SCH (08:54)
[2022-12-21] MEDS: Metoprolol Tartrate 50 MG TAB PO SCH ×3 (08:54→20:46)
[2022-12-21] MEDS: Rosuvastatin 5 MG TAB PO SCH (08:54)
[2022-12-21] MEDS: Aspirin 81 mg Enteric Coated Tablet PO SCH (08:54)
[2022-12-21 10:41] LABS: Vancomycin, Trough 16.8 ug/mL
[2022-12-22] MEDS: Meropenem 1 GM in Sodium Chloride 0.9% 100 ML IVPB SCH (05:16)
[2022-12-22 05:58] LABS: #Eosinphils 0.1 thou/uL (0.0-0.7); #Monocytes 0.8 thou/uL (0.11-0.59); %Basophils 0.1 % (0.0-1.0); %Eosinophils 0.8 % (0.0-10.0); %Lymphocytes 24.5 % (21.0-51.0); %Monocytes 10.4 % (0.0-10.0); %Neutrophils 63.9 % (42.0-75.0); Hemoglobin 8.7 g/dL (12.0-16.0); Mean Corpuscular HGB CONC 30.9 g/dL (32.0-36.0); Mean Corpuscular Hemoglobin 26.9 pg (27.0-31.0); Mean Corpuscular Volume 87.3 fl (78.0-98.0); Mean Platelet Volume 9.9 fL (7.4-10.4); Platelet Count 143 10x3/uL (130-400); RBC Distribution Width 17.2 % (11.5-14.5); Red Blood Cell (RBC) Count 3.23 mill/uL (4.20-5.40); White Blood Cell (WBC) Count 7.9 10x3/uL (4.8-10.8)
[2022-12-22 06:20] LABS: Anion Gap 11 mmol/L (10-20); BUN (Urea Nitrogen) 12 mg/dL (9.8-20.1); Calc. Creatinine Clearance 128 mL/min (70-130); Calcium 8.2 mg/dL (7.8-10.44); Carbon Dioxide 24 mmol/L (23-31); Chloride 107 mmol/L (98-107); Estimated GFR 100; Glucose 121 mg/dL (83-110); Sodium 139 mmol/L (136-145)
[2022-12-22] MEDS: Sodium Chloride 0.9% 1,000 ML IV SCH (07:12)
[2022-12-22] MEDS ORDERED: Potassium Chloride 20 MEQ TAB PO SCH (08:00)
[2022-12-22] MEDS: Rosuvastatin 5 MG TAB PO SCH (09:07)
[2022-12-22] MEDS: Vit A,C & E/Lutein/Minerals Tablet PO SCH (09:07)
[2022-12-22] MEDS: Folic Acid 1 MG TAB PO SCH (09:07)
[2022-12-22] MEDS: levETIRAcetam 500 MG/5 ML VIAL SLOW IVP SCH (09:07)
[2022-12-22] MEDS: Aspirin 81 mg Enteric Coated Tablet PO SCH (09:07)
[2022-12-22] MEDS: Ferrous Sulfate 325 MG TAB PO SCH (09:08)
[2022-12-22] MEDS: Rifaximin 200 MG TAB PO SCH (09:08)
[2022-12-22] MEDS: Metoprolol Tartrate 50 MG TAB PO SCH (09:08)
[2022-12-22] MEDS: Vancomycin 1 GM in Premix Bag 1 BAG IVPB SCH (10:48)
[2022-12-22 11:58] VITALS: BP 134/91; TEMP 98.7
== END 2022-12-22 13:20 | DRG 871 ==
LOC: ERS 09:06 → 2SE 13:15
PROVIDERS: ADMIT Internal Medicine; ATTEND Internal Medicine
DX: A41.51 Sepsis due to Escherichia coli [E. coli] (principal); G93.41 Metabolic encephalopathy; J18.9 Pneumonia, unspecified organism; R47.01 Aphasia; I69.351 Hemiplegia and hemiparesis following cerebral infarction affecting right dominant side; N30.01 Acute cystitis with hematuria; I50.32 Chronic diastolic (congestive) heart failure; I48.91 Unspecified atrial fibrillation; Z66 Do not resuscitate; K21.9 Gastro-esophageal reflux disease without esophagitis; I11.0 Hypertensive heart disease with heart failure; R13.12 Dysphagia, oropharyngeal phase; A41.1 Sepsis due to other specified staphylococcus; G62.9 Polyneuropathy, unspecified; L89.152 Pressure ulcer of sacral region, stage 2; R29.810 Facial weakness; E78.5 Hyperlipidemia, unspecified; K76.82 Hepatic encephalopathy; M54.40 Lumbago with sciatica, unspecified side; G89.29 Other chronic pain; M79.7 Fibromyalgia; R47.1 Dysarthria and anarthria; G40.909 Epilepsy, unspecified, not intractable, without status epilepticus; D64.9 Anemia, unspecified; K70.31 Alcoholic cirrhosis of liver with ascites; F31.9 Bipolar disorder, unspecified; Z88.2 Allergy status to sulfonamides; Z88.1 Allergy status to other antibiotic agents; I69.391 Dysphagia following cerebral infarction; Z79.82 Long term (current) use of aspirin; Z79.899 Other long term (current) drug therapy; Z87.440 Personal history of urinary (tract) infections; Z90.49 Acquired absence of other specified parts of digestive tract; Z98.51 Tubal ligation status; Z82.49 Family history of ischemic heart disease and other diseases of the circulatory system
CPT/HCPCS: 0042T; 36415; 51701; 70450; 70496; 70498; 70551; 80048; 80053; 80061; 80202; 81001; 82105; 82140; 82728; 83540; 83550; 83605; 83735; 84100; 84425; 84484; 85025; 85610; 85730; 87040; 87077; 87086; 87149; 87186; 93005; 93306; 95712; 95816; 95819; 95957; 96365; 97139; J0696; J1160; J1650; J1953; J2060; J2185; J3370; J3370-JW; J3411; J3475; J3480; J3490; J7050; Q9967